=== PATIENT | female | born 1940 | race Caucasian/White ===

== ENCOUNTER → 2017-08-28 14:55 | Outpatient (CLI) | payer MEDICARE, OTHER, SELFPAY ==
--- NOTE | 2017-08-28 | BRBX_PTH ---
PATIENT: VERENICE GREENFIELD LOC: [facility] U#:[id number] AGE/SX: 85/F ROOM: RE08/28/[address]: Dr. Edwin Wolf MD : 1940 BED: DIS: SPEC #: [id number] RECD: 08/28/17 15:07 STATUS: ROCKY LUKAS #: [id number] ZARA: 08/28/17 00:[address]: Edwin Wolf DEPT: SURGICAL PATHOLOGY RECD BY: Benito Urbina ENTERED: 08/28/17 15:08 SP TYPE: BREAST BX OTHR DR: Dr. Javier Ocasio MD Tissues: Right breast, NOS Procedures: Surgery Specimen Level IV HEADER OPERATION: Right breast biopsy PRE-OP DIAGNOSIS: Right breast mass TISSUE SUBMITTED: Right breast tissue ISCHEMIC TIME: 1 second FIXATION TIME: 6.5 hours MICROSCOPIC DIAGNOSIS Right breast mass, core biopsy: Invasive ductal carcinoma: Maximal length ? 15 mm Nuclear grade ? 3/3 AM:rg 5/23/18 COMMENT ER/CO/Ewe5tdk studies are being performed on sections of tumor and the results from this study will be reported separately ([id number]). MICROSCOPIC DESCRIPTION Slides are reviewed. GROSS DESCRIPTION Received in fixative is one container labeled with the patient's name and designated right breast. The specimen consists of multiple elongated fragments of france-yellow fibroadipose tissue that in aggregate measure 2.5 x 0.5 x 0.1 cm. The entire specimen is submitted in one cassette. / SJ:barbara 08/28/17 TC:0 CPT: 77577 ADDENDUM ADDENDUM ADDENDUM ADDENDUM ADDENDUM ADDENDUM ADDENDUM ADDENDUM ADDENDUM ADDENDUM 10/24/2017 14:20 ADDENDUM 10/24/2017 14:20 ADDENDUM 10/24/2017 14:20 ADDENDUM 10/24/2017 14:20 ADDENDUM 10/24/2017 14:20 This addendum is added to incorporate an outside pathology consultation report. The case was examined at [facility] (#[id number]) and the following diagnosis was rendered. Breast, right, core biopsy: Invasive ductal carcinoma, poorly differentiated. Please see complete above mentioned consultation report in EMR
--- NOTE | 2017-08-28 | IMM_PTH ---
PATIENT: VERENICE GREENFIELD LOC: [facility] U#:[id number] AGE/SX: 85/F ROOM: RE08/28/[address]: Dr. Edwin Wolf MD : 1940 BED: DIS: SPEC #: [id number] RECD: 08/29/17 13:25 STATUS: ROCKY REQ #: [id number] ZARA: 08/28/17 00:[address]: Edwin Wolf DEPT: IMMUNOHISTOCHEMISTRY RECD BY: Sheila Leblanc ENTERED: 08/29/17 13:30 SP TYPE: IMMUNO OTHR DR: Dr. Javier Ocasio MD Tissues: Right breast, NOS Procedures: CALPONIN-1 (add) CK5-6 (add) CK8 (add) E-CAD (add) HER2 JOVITA (add) KI-67 (add) P53 (add) NE (add) P40 (add) ER (initial) PHYSICIAN & INSTITUTION [place] [id number] SPECIMEN INFORMATION: Tissue Source: Right breast tissue Clinical Info: Right breast mass Specimen Number: [id number] CPT code: 73309, 27579 x6, 37719 x3 METHODOLOGY: Deparaffinized sections of prefer/formalin-fixed tissue or PAP/DQ stained slides are incubated with monoclonal/polyclonal antibodies/oligonucleotide probes. Localization is made via biotin free immunoperoxidase method. Appropriate controls are performed and reacted as expected. Results on target cell population are indicated in the following table: RESULTS: ANTIBODY / CLONE RESULT P53 (DO-7) positive, >95% Ki-67 (30-9) positive, moderate CK8 (37xiveQ12) positive CK5-6 (D5 & 1684) negative Calponin-1 (XT865P) negative P40 (BC28) negative E-Cad (ECH-6) positive MORPHOMETRIC ANALYSIS ER (clone 6F11) >95%, strong NE (clone 16/1E2) <1%, weak Her-2Neu (clone CB11) 3+ The prognostic test for HER2 is performed on formalin-fixed paraffin embedded tissue. A 3+ (positive) staining pattern is defined as intense, homogeneous, complete, circumferential membranous staining in >10% of contiguous tumor cells. A similar weak (2+) staining pattern is interpreted as equivocal. DREW follow-up testing is recommended for all equivocal cases. Positivity/negativity for ER/NE is reported if > or < 1% of the tumor cells are immuno- reactive, respectively. The ASCO/CAP criteria is used for scoring. Reference: Journal of Clinical Oncology, 2013; 31:8047-6247 & 2010; 16:7836-6356. Duration of fixation: 6.5 Hrs; Sample Adequate: Yes. These assays have not been validated on decalcified tissues. Results should be interpreted with caution given the likelihood of false negativity on decalcified specimens. These tests were developed and their performance characteristics determined by [facility]. They may not have been cleared or approved by the U.S. Food and Drug Administration. The FDA has determined that such clearance or approval is not necessary. INTERPRETATION: Right breast, core biopsy: Invasive ductal carcinoma. Positive for estrogen receptors (favorable prognostic indicator). Positive for progesterone receptors (favorable prognostic indicator). Positive for overexpression of BSD6jxg. AM:barbara 08/31/17 ADDENDUM ADDENDUM ADDENDUM ADDENDUM ADDENDUM ADDENDUM ADDENDUM ADDENDUM 10/04/2017 10:33 ADDENDUM 10/04/2017 10:33 ADDENDUM 10/04/2017 10:33 ADDENDUM 10/04/2017 10:33 ADDENDUM 10/04/2017 10:33 Repeat HER2 (ERBB2) Immunohistochemistry assay performed at [facility] and reported on 10/03/17: Interpretation: Positive for HER2 (ERBB2) Expression Score: (3+) Percentage of cells with uniform intense complete membrane statin% Complete report is viewable in EMR
== END ==
PROVIDERS: Family Provider Family Medicine Geriatric Medicine; PCP Family Medicine Geriatric Medicine; Visit Provider Surgery
DX: N63.10 Unspecified lump in the right breast, unspecified quadrant (principal)
CPT/HCPCS: 88305; 88341; 88342

== ENCOUNTER → 2018-09-19 10:27 | Outpatient (CLI) | payer MEDICARE, OTHER, SELFPAY ==
[2018-09-16 15:03] VITALS: BMI 33.6
== END ==
PROVIDERS: Family Provider Nurse Practitioner Primary Care; PCP Nurse Practitioner Primary Care; Referring Provider Internal Medicine Cardiovascular Disease; Visit Provider Internal Medicine Cardiovascular Disease
DX: I49.3 Ventricular premature depolarization (principal); I10 Essential (primary) hypertension; I27.20 Pulmonary hypertension, unspecified; I34.0 Nonrheumatic mitral (valve) insufficiency; I36.1 Nonrheumatic tricuspid (valve) insufficiency
CPT/HCPCS: 93225; 93226

== ENCOUNTER → 2018-10-02 06:03 | Outpatient (CLI) | payer MEDICARE, OTHER, SELFPAY ==
[2018-09-16 15:03] VITALS: BMI 33.6
--- NOTE | 2018-10-02 09:46 | STRESSREP ---
Stress Test Report Date: 10-02-18 Procedure: Pharmacologic stress nuclear imaging study Indications: PVCs Consent: Per the patient Procedure: The patient underwent pharmacologic (Regadenoson) evaluation with a peak heart rate of 97 beats per minute (69 %predicted maximal heart rate) and a peak blood pressure of 152/88 mmHg. The baseline ECG demonstrated normal sinus rhythm; nonspecific T wave abnormality; poor R wave progression. The peak pharmacologic ECG demonstrated no obvious ECG changes. There were occasional PVCs pretest and during recovery in patterns compatible with ventricular bigeminy and ventricular trigeminy. There was no complaint of chest discomfort during pharmacologic infusion or recovery. The examination was discontinued secondary to completion of protocol. Impression: 1. Pharmacologic (Regadenoson) evaluation 2. Peak pharmacologic ECG with continued nonspecific T wave abnormality with no obvious ECG changes. 3. There were occasional PVCs pretest and during recovery and patterns compatible with ventricular bigeminy and ventricular trigeminy. 4. Nuclear images pending Myocardial perfusion imaging study: Technique: The patient was injected with 11.4 millicuries of technetium 99m Cardiolite and subsequently rest SPECT Cardiolite nuclear imaging was obtained in the horizontal long, vertical long, and short axis views. The patient underwent pharmacologic (Regadenoson) evaluation with a peak heart rate of 97 beats per minute (69 % percent predicted maximal heart rate) and a peak blood pressure of 152/88 mmHg. The patient was injected with 33.5 millicuries of technetium 99m Cardiolite and subsequently stress SPECT Cardiolite nuclear imaging was obtained in the horizontal long, vertical long, and short axis views. A gated Cardiolite study at peak stress was obtained. Interpretation: Rest and stress SPECT Cardiolite nuclear imaging status post realignment, normalization, and attenuation correction demonstrate areas of subtle diminished myocardial perfusion/tracer uptake in portions of the mid to distal anterior/anteroseptal segments which appear to be somewhat more prominent following stress as opposed to rest. There is end systolic thickening and brightening. The gated Cardiolite study demonstrates myocardial thickening and inward wall motion. The reported LVEF is 43 %. Impression: 1. Rest and stress SPECT cardio light nuclear imaging demonstrate myocardial perfusion changes potentially compatible with the effects of shifting soft tissue attenuation/artifact although an area of myocardial ischemia involving portions of the mid to distal anterior/anteroseptal segments cannot necessarily be excluded. 2. The gated Cardiolite study reports an LVEF of 43 %. This note was generated with NexPlanaration software. It may contain incorrect words, spelling, and punctuation that were not noted in checking the note before signing.
== END ==
PROVIDERS: Family Provider Nurse Practitioner Primary Care; PCP Nurse Practitioner Primary Care; Referring Provider Internal Medicine Cardiovascular Disease; Visit Provider Internal Medicine Cardiovascular Disease
DX: I25.10 Atherosclerotic heart disease of native coronary artery without angina pectoris (principal); I49.3 Ventricular premature depolarization; I10 Essential (primary) hypertension; I27.20 Pulmonary hypertension, unspecified; I34.0 Nonrheumatic mitral (valve) insufficiency; I36.1 Nonrheumatic tricuspid (valve) insufficiency
CPT/HCPCS: 78452; 93017; A9500; A4216; J2785

== ENCOUNTER 2018-10-15 06:58 | Day surgery (SDC) | payer MEDICARE, OTHER, SELFPAY ==
[2018-09-16 15:03] VITALS: BMI 33.6
[2018-10-08 09:12] VITALS: BMI 33.6
--- NOTE | 2018-10-08 09:15 | RAD_ITS ---
STUDY: X-RAY CHEST REASON FOR EXAM: Female, 78 years old. Shortness of breath. Abnormal stress test. Preop heart catheterization. TECHNIQUE: PA and lateral views of the chest. COMPARISON: None. FINDINGS: There is a right-sided PICC line with its tip in the midsuperior vena cava. The lungs are clear and expanded. There is no demonstrated pleural abnormality. The heart is mildly enlarged. Normal mediastinum and allison. Normal visualized pulmonary arteries. Normal visualized aortic arch and descending thoracic aorta. There are diffuse degenerative changes of the visualized thoracic spine. There is mild anterior wedging of what is thought to be T8. There is degenerative osteoarthritis of the bilateral shoulders. There is no demonstrated abnormality of the visualized soft tissue structures of the upper abdomen. RAD/Chest PA and Lateral IMPRESSION: Cardiomegaly without acute pulmonary disease. Electronically Signed: Omega Orourke DO at 16:56 EDT Tel [phone], Service support ,
[2018-10-08 10:32] LABS: Hemoglobin 12.4 g/dl (12.0-15.0); Mean Corp Hgb Conc 31.8 g/gl (32-36); Mean Corpuscular Hgb 28.4 pg (27.0-32.0); Mean Corpuscular Volume 89.2 fL (81-99); Mean Platelet Vol. 10.8 fl (6.2-12.0); Platelet Count 207 K/mm3 (150-450); RBC Distribution Width CV 15.9 % (11.6-14.6); RBC Distribution Width SD 51.9 fl (35.1-43.9); Red Blood Count 4.37 M/mm3 (4.2-5.4); White Blood Count 5.8 K/mm3 (4.4-11.0)
[2018-10-08 10:34] LABS: International Normalized Ratio 1.1; Prothrombin Time (Protime)PT. 14.4 SECONDS (11.7-14.9)
[2018-10-08 10:35] LABS: Scan Indicated on CBC? Y/N NO
[2018-10-08 10:36] LABS: Partial Thromboplast Time 34.9 Seconds (24.1-36.2)
[2018-10-08 10:49] LABS: Anion Gap 10 (5-15); BUN 15 mg/dL (7-18); BUN/Creat Ratio 17.5 RATIO (10-20); Calcium,Total 8.6 mg/dL (8.5-10.1); Chloride 111 mmol/L (98-107); Creatinine, Serum 0.86 mg/dL (0.55-1.02); EST Glomerular Filtration Rate 68 mL/min (>60); Est Glom Filt Rate - Afr Amer 82 mL/min (>60); Glucose 104 mg/dL (74-106); Potassium 3.8 mmol/L (3.5-5.1); Sodium Level 145 mmol/L (136-145)
[2018-10-14 08:45] VITALS: BMI 33.6
[2018-10-15] VITALS (35 sets, daily range): BP systolic 102–197; BP diastolic 37–110; PULSE 55–90; RESP 14–21; TEMP 35.7–35.8; O2SAT 92–99; BMI 35.4
--- NOTE | 2018-10-15 08:26 | PCM.HP.BLA ---
Problem List (1) Abnormal stress test Status: Acute (2) Premature ventricular contraction Status: Chronic (3) Non-rheumatic mitral regurgitation Status: Chronic (4) Nonrheumatic tricuspid valve regurgitation Status: Chronic (5) Essential hypertension Status: Chronic (6) Pulmonary hypertension Status: Chronic (7) Cancer of right female breast Status: Chronic History and Physical Date of Admission: 10/15/18 HPI History of Present Illness Details: This is an 78-year-old white female who presents today for outpatient cardiovascular consultation regarding concerns of underlying PVCs. She states she has no cardiovascular history that she is aware of. She has been undergoing evaluation and care through the [facility] system for concerns of breast carcinoma. She stated she was treated with chemotherapy, did not require radiation therapy, and has not had surgery. To the best of her knowledge she is currently in remission. She states she is due to have a follow-up mammogram in the near future. During her evaluation and care she has been found to have PVCs. According to her PCP notes she was now referred for evaluation of such. She denies any obvious palpitations or rapid rate sensations. There has been no episodes of near syncope or syncope. She also denies any resting or exertional chest discomfort suspicious for angina pectoris. There is been no episodes of CHF or pulmonary edema. She states she has been on medical management for her hypertension. She notes that since being on amlodipine therapy, especially her dose being increased, that she has an element of edema around her ankles. Based on her evaluation it appears to be trace at this time. She did have an ECG in the office today. She was noted to have sinus rhythm with PVCs in the form of ventricular bigeminy with a leftward axis, poor R wave progression, and a nonspecific T wave abnormality. She also had a transthoracic echocardiogram performed through the [facility] system on 07-24-18. According to the report the left ventricle was noted to have mildly diminished LV systolic function/LVEF of 50%, left atrium was severely enlarged, the right atrium was dilated, there was moderate MR and moderate TR, the estimated RV systolic pressure was 60 mmHg compatible pulmonary hypertension. To the best of her knowledge she has never had any type ambulatory heart rhythm monitoring nor she had any form of stress testing. She has never undergone diagnostic cardiac catheterization. Intake Vital Signs 09/16/18 Height 5 ft 2 in 09/16/18 Weight: 184 lb 09/16/18 Body Mass Index (BMI) 33.6 09/16/18 Blood Pressure 120/68 09/16/18 Blood Pressure Location Rt brachial 09/16/18 Blood Pressure Position Sitting 09/16/18 Respiratory Rate 16 09/16/18 Pulse Rate 72 09/16/18 Pulse Source Auscultation Intake Visit Reasons: Hypertension/Ref. Esperanza Topete Sequins Slinger Required: No Accompanied by: Allergies No Known Allergies Allergy (Verified 09/16/18 15:03) Medications Aspirin [Low Dose Aspirin EC] 81 mg PO DAILY 09/17/17 [History Confirmed 09/16/18] amlodipine 5 mg tablet 5 mg PO DAILY 09/16/18 [History Confirmed 09/16/18] anastrozole 1 mg tablet 1 mg PO DAILY 09/16/18 [History Confirmed 09/16/18] calcium carbonate-vitamin D3 600 mg calcium-200 unit capsule 1 cap PO DAILY cap 09/16/18 [History Confirmed 09/16/18] quinapril 40 mg tablet 40 mg PO DAILY 09/16/18 [History Confirmed 09/16/18] [facility] Medical History Pulmonary hypertension (Acute) Nonrheumatic tricuspid valve regurgitation (Acute) Non-rheumatic mitral regurgitation (Acute) Premature ventricular contraction (Acute) Essential hypertension (Chronic) Anxiety (Acute) Mass of right breast on mammogram (Acute) Breast cancer (Resolved) H/O: hysterectomy (Resolved) HTN (hypertension) (Inactive) Surgical History History of cholecystectomy (Resolved) H/O bladder repair surgery (Resolved) Family History Sister Breast cancer Sister Cancer Brain Other late entry reviwed 09-14-17 Social History Smoking Status: Never smoker alcohol intake: never substance use type: does not use caffeine: Yes Type: coffee ROS Const Const: Negative for fatigue, weakness, frequent falls, excessive sweating, weight gain or weight loss Eyes Eyes: Negative for transient loss of vision, blurry vision or change in vision ENT ENT: Negative for dizziness or balance problems Cardio Chest Pain: No Palpitations: No Edema: Bilateral (slight bilat LE) Muscle aches with walking: None Resp Respiratory: Negative for SOB with activity or SOB at rest GI GI: Negative vomiting or vomiting blood/hematemesis : Negative for hematuria Musc Musc: Negative for muscle aches/ myalgia, muscle weakness, joint pain or balance problems Skin Skin: Negative non-healing lesions or rash Neuro Neuro: Negative for dizziness, lightheadedness, orthostatic symptoms, frequent falls, weakness or blurry vision Oskar Hematologic/Lymphatic: Negative for easy bleeding Endo Endo: Negative for fatigue or excessive sweating Psych Psych: Negative for anxiety or depression Allergy Allergy/Immunology: Negative for hives, Negative for rash Cardiology Exam Const Appearance: cooperative, healthy appearing, comfortable, no acute distress, well developed and well groomed Nutritional Appearance: obese Orientation: alert, awake and oriented x3 Head Head: normal to inspection, normocephalic and atraumatic Ears: hearing grossly normal bilaterally Nose: external nose normal Face and Sinus: face symmetric Mouth: oral mucosae normal Eyes Eyelids: eyelids normal Conjunctivae: conjunctivae normal Pupils: PERRL EOM: EOM intact bilaterally Neck Neck: normal visual inspection and full ROM Carotids: normal carotid upstroke Chest Chest inspection: normal inspection of the chest, symmetric chest movement and normal respiratory effort Auscultation: Bilateral: Clear to Auscultation Cardio Palpation: normal PMI Rate: regular rate Rhythm: regular rhythm and ectopic beats Heart sounds: S1 normal and S2 normal Murmur: Grade 2/6, soft, mid systolic and LLSB GI GI: normal to inspection, soft, bowel sounds present and obese Neuro General: alert, awake, oriented x3 and moves all extremities Skin Skin: no rashes or lesions noted Extremities Pulses: Normal: Right Radial Pulse, Left Radial Pulse Lower Extremity Edema: None: Bilateral Psych Psychological: normal affect Assessment & Plan 1. Premature ventricular beat I49.3 Plan At the present time she does have PVCs. They appear to be asymptomatic. She will be further evaluated with a 24-hour Holter monitor. This will be to evaluate her average rate and rhythm as well as attempt to evaluate the complexity of her ventricular ectopy and quantify her ventricular ectopy. Depending upon the findings she may or may not need medical management for her ventricular ectopy. Orders Orders: 12 Lead [place] [facility] [place] Cardiac Holter Monitor, Set-Up Today Nuclear Stress Test - Chemical Today 2. Non-rheumatic mitral regurgitation I34.0 Plan She does have both MR and TR per her report. At the moment she appears without any obvious acute symptoms. She will continue to be followed by history and exam and echocardiogram as deemed appropriate. Orders Orders: Cardiac Holter Monitor, Set-Up Today Nuclear Stress Test - Chemical Today 3. Nonrheumatic tricuspid valve regurgitation I36.1 Plan She will continue evaluation care as noted above. Orders Orders: Cardiac Holter Monitor, Set-Up Today Nuclear Stress Test - Chemical Today 4. Pulmonary HTN I27.20 Plan She does have, per her echocardiogram report, elevation of her right sided pressures. She appears to be without any acute symptoms at this time. She will undergo further evaluation as noted above. She will also continue her calcium channel antagonist therapy. She has not required ongoing diuretic therapy at this time or additional pulmonary support. Orders Orders: Cardiac Holter Monitor, Set-Up Today Nuclear Stress Test - Chemical Today 5. Essential hypertension I10 Plan Her blood pressure appears to be reasonably well controlled at the moment. She will continue her current medical therapy. Orders Orders: 12 Lead EKG [place] [facility] [place] Cardiac Holter Monitor, Set-Up Today Nuclear Stress Test - Chemical Today Plan Detail Additional Comments She will also be asked to have a pharmacologic stress nuclear imaging study. This will be to further assess her cardiovascular status for any obvious evidence of ongoing coronary artery ischemia that would contribute to her findings and warrant further evaluation and care. The above was discussed with the patient and her . They are agreeable to this approach. Thank you for allowing me to participate in the care of your patient. Please don't hesitate to call if any issues arise. This note was generated using a voice recognition system and there may be incorrect words, spelling or punctuation that were not noted when reviewing the office note prior to saving. Follow Up 3 Months (PFM) Coding Level of Care Code Off vis,new,level 4 Diagnoses Premature ventricular beat I49.3 Non-rheumatic mitral regurgitation I34.0 Nonrheumatic tricuspid valve regurgitation I36.1 Pulmonary HTN I27.20 Essential hypertension I10 Coding Level of Care Code Off vis,new,level 4 Diagnoses Premature ventricular beat I49.3 Non-rheumatic mitral regurgitation I34.0 Nonrheumatic tricuspid valve regurgitation I36.1 Pulmonary HTN I27.20 Essential hypertension I10 Supplemental Info Supplemental Information Labs LDL Cholesterol 84 mg/dL (0-130) 06/02/15 HDL Cholesterol 61 mg/dL (40-) 06/02/15 Triglycerides 67 mg/dL (-199) 06/02/15 VLDL Cholesterol 13 mg/dL (5-40) 06/02/15 Diagnostics Electrocardiogram 09/16/18 09/16/18 [id number] <Electronically signed by Jose Alfredo Felton MD> Date Jose Alfredo Felton MD I have examined the patient the following changes are noted: Her graph the patient underwent pharmacologic stress nuclear imaging study on 10-02-18. The impression consisted of myocardial perfusion changes potentially compatible with the effects of shifting soft tissue attenuation/artifact although an area of myocardial ischemia involving portions of the mid to distal anterior and anteroseptal segments could not necessarily be excluded. The gated LVEF was reported at 43%. Based upon the above the patient was recommended for further evaluation with diagnostic cardiac catheterization. The procedure and risks were discussed with the patient. She was agreeable to this approach. This is scheduled for 10-15-18 at [facility]. This note was generated using a voice recognition system and there may be incorrect words, spelling or punctuation that were not noted when reviewing the office note prior to saving.
--- NOTE | 2018-10-15 10:35 | CL.I_ITS ---
Patient Name: VERENICE GREENFIELD Study Date: 10/15/2018 Performing: Gelacio Biggs MD Ht: 61.81 inches 157 cm : 1940 Wt: 182.98 lbs 83 kg Age: 78 Gender: female BSA: 1.84 PROCEDURE(S) PERFORMED [id number] W OR WO PTCA, SINGLE CORONARY ARTERY CLINICAL PROFILE AND CO-MORBIDITIES Indications: Suspected CAD, Cardiomyopathy, Cardiac Arrythmia Heart Failure: None Stress/Imaging Date: 10/02/2018 Stress Test with SPECT MPI: Positive Angina Classification Anginal Classification w/in 2 Weeks: No symptoms CAD Presentations: Other: Ventricular Ectopy CONCLUSIONS Successful PCI with Drug eluting stent and PTCA to the pLAD RECOMMENDATIONS Follow up with Dr. Jose Francisco FARFAN Indefinitley Plavix for at least 12 months Routine post interventional care DESCRIPTION OF PROCEDURE The patient arrived to the procedure lab. The risks and benefits of the procedure as well as a full d escription of our services here and current unavailability of surgical backup were fully explained to the patient and/or their significant other prior to the catheterization. The Timeout was completed, verifying the correct patient and procedure. The patient's procedural site was prepped and draped in the usual fashion. Local anesthetic was given subcutaneously to right radial region with Lidocaine 2% . Local anesthetic was given subcutaneously to right groin region with Lidocaine 2% Using a modified Seldinger technique,arterial access was obtained via the right radial artery, a 6Fr sheath was insert ed., arterial access was obtained via the right femoral artery, a 4Fr sheath was inserted Left [place] ry Artery selective angiography was performed in multiple views using a 4 Fr. JL5 catheter. Right Cor onary Artery selective angiography was then performed in multiple views using a 4 Fr. JR4 catheter. Left Ventriculography was performed in BARBOSA projection using a 4 Fr. Pigtail catheter. LV to AO pullback pressures were then recorded.The images were reviewed and options discussed. A decision was then made to proceed with an Intervention, IVUS or other adjunct procedure. Arterial sheath was exchanged for a 6 Fr Sheath. xb 3 cordis Guide catheter was inserted and enga ged into the LCA. bmw Guide wire was advanced to the LAD. emerge 2.00 x 12 Balloon catheter was advan yvonne across lesion in the LAD, proximal. PTCA balloon inflated at 6 atms for 9 secs. PTCA balloon infl ated at 6 atms for 8 secs. resolute integrity 2.25 x 12 Drug Eluting stent was advanced across the le amos in the LAD, proximal. Angiogram performed post stent deployment. The radial arterial sheath wa s pulled and a TR Band was applied for hemostasis. The arterial sheath was sutured in place and cappe d INTERVENTION INFORMATION LESION SITE: LAD (Proximal) Lesion Complexity: High/C, chronic total occlusion: No, lesion at bifurcation: No, thrombus present: No, lesion length: 10 mm, culprit lesion: Yes, Previously treated lesion: No Pre Stenosis: 80 % Pre intervention URSULA flow: 3 PROCEDURE: Drug Eluting Stent with pre dilatation. Post Stenosis: 0 % Post intervention URSULA flow: 3 Lesion Devices: Cordis 6 Fr XB3.0 100cm Guide Catheter Powell .014 [employer] [place] Straight 190cm Powell .014 [employer] [place] Straight 190cm Rey Sci EMERGE MR 2.00x12 BALLOON Medtronic Resolute RX SHALOM 2.25x12 COMPLICATIONS No Complications PROCEDURE MEDICATIONS Versed 1 mg IV Fentanyl 50 mcg IV Versed 1 mg IV Oxygen: 2 L/min via nasal cannula Heparin given IA 10/15/2018 08:36:54 Heparin given IA 10/15/2018 08:36:54 Heparin 6000 unit(s) IV 10/15/2018 09:57:05 Verapamil 2.5mg, Ntg 100mcgs, 2000 units of Heparin given IA 10/15/2018 08:36:54 Verapamil 2.5mg, Ntg 100mcgs, 2000 units of Heparin given IA 10/15/2018 08:36:54 Zofran 4 mg IV 10/15/2018 10:00:55 SUMMARY OF HEMODYNAMIC DATA Time AIR REST ECG 07:18:30 AO 156/69 (100) SA 09:29:44 LV 162/11, 25 09:39:17 LV 152/0, 17 09:40:33 LV 165/2, 16 09:40:57 LVp 165/0, 20 09:41:04 AOp 158/72 (104) 09:41:09 Signed By Gelacio Biggs MD On 10/15/2018 10:34:29 Gelacio Biggs MD
--- NOTE | 2018-10-15 10:45 | EKG12_ITS ---
Test Reason : POST PCI Blood Pressure : / mmHG Vent. Rate : 055 BPM Atrial Rate : 055 BPM P-R Int : 248 ms QRS Dur : 090 ms QT Int : 474 ms P-R-T Axes : 023 -27 -32 degrees QTc Int : 453 ms Sinus bradycardia with 1st degree A-V block Nonspecific ST and T wave abnormality Abnormal ECG Confirmed by YENNY BROTHERS ([id number]), purchase request editor SILVER BURROWS ([id number]) on 10/17/2018 1:54:30 PM Referred By: Jose Alfredo Felton Confirmed By:YENNY BROTHERS
[2018-10-15] MEDS: 0.9% Normal Saline 1,000 ML 100 ML IV (11:05)
--- NOTE | 2018-10-15 11:40 | CL.D_ITS ---
Patient Name: VERENICE GREENFIELD Study Date: 10/15/2018 Performing: Jose Alfredo Felton MD Ht: 62 inches 157 cm : 1940 Wt: 183.2 lbs 83 kg Age: 78 Gender: female BSA: 1.84 PROCEDURE(S) PERFORMED [id number] W OR WO PTCA, SINGLE CORONARY ARTERY CLINICAL PROFILE AND INDICATIONS Indications: Suspected CAD, Cardiomyopathy, Cardiac Arrythmia Heart Failure: None Stress/Imaging Date: 10/02/2018Stress Test with SPECT MPI: Positive Angina Classification Anginal Classification w/in 2 Weeks: No symptoms CAD Presentations: Other: Ventricular Ectopy CONCLUSIONS Elevated Left Ventricular End Diastolic Pressure Global LV systolic dysfunction- Mild LVEF: by LV gram 45 % [place] Multivessel CAD RECOMMENDATIONS Risk factor modification Medical therapy Referred for immediate PCI DESCRIPTION OF PROCEDURE The patient arrived to the procedure lab. The risks and benefits of the procedure as well as a full d escription of our services here and current unavailability of surgical backup were fully explained to the patient and/or their significant other prior to the catheterization. The Timeout was completed, verifying the correct patient and procedure. The patient's procedural site was prepped and draped in the usual fashion. Local anesthetic was given subcutaneously to right radial region with Lidocaine 2% . Local anesthetic was given subcutaneously to right groin region with Lidocaine 2%. Using a modified Seldinger technique, arterial access was obtained via the right radial artery, a 6Fr sheath was inse rted., arterial access was obtained via the right femoral artery, a 4Fr sheath was inserted Left Cor onary Artery selective angiography was performed in multiple views using a 4 Fr. JL5 catheter. Right Coronary Artery selective angiography was then performed in multiple views using a 4 Fr. JR4 catheter. Left Ventriculography was performed in BARBOSA projection using a 4 Fr. Pigtail catheter. L V to AO pullback pressures were then recorded.The radial arterial sheath was pulled and a TR Band was applied for hemostasis. The arterial sheath was sutured in place and capped CORONARY ANGIOGRAPHY DOMINANCE: Right Dominant LEFT HEART ASSESSMENT Left Ventricular Ejection Fraction: by LV Gram 45 % Global Hypokinesis Elevated Left Ventricular End Diastolic Pressure LEFT MAIN: Angiographically normal LEFT ANTERIOR DESCENDING ARTERY: PROX LAD: Mild calcification MID LAD: S/P DX: Eccentric: Hazy: 75 % Stenosis, Mild luminal irregularities DIAGONAL 1: Proximal - Mild luminal irregularities CIRCUMFLEX ARTERY: OM 1: Proximal - Mild luminal irregularities RIGHT CORONARY ARTERY: PROX RCA: Eccentric: 10 -25 % Stenosis MID RCA: Mild luminal irregularities DISTAL RCA: Mild luminal irregularities VALVE FINDINGS: Normal Aortic Valve function Mitral Valve Insufficiency - Grade 2 AORTIC ROOT: Angiographically normal COMPLICATIONS No Complications PROCEDURE MEDICATIONS Versed 1 mg IV Fentanyl 50 mcg IV Versed 1 mg IV Oxygen: 2 L/min via nasal cannula Heparin given IA 10/15/2018 08:36:54 Heparin given IA 10/15/2018 08:36:54 Heparin 6000 unit(s) IV 10/15/2018 09:57:05 Verapamil 2.5mg, Ntg 100mcgs, 2000 units of Heparin given IA 10/15/2018 08:36:54 Verapamil 2.5mg, Ntg 100mcgs, 2000 units of Heparin given IA 10/15/2018 08:36:54 Zofran 4 mg IV 10/15/2018 10:00:55 SUMMARY OF HEMODYNAMIC DATA Time AIR REST ECG 07:18:30 AO 156/69 (100) SA 09:29:44 LV 162/11, 25 09:39:17 LV 152/0, 17 09:40:33 LV 165/2, 16 09:40:57 LVp 165/0, 20 09:41:04 AOp 158/72 (104) 09:41:09 Signed By Jose Alfredo Felton MD On 10/15/2018 11:39:18 Jose Alfredo Felton MD
--- NOTE | 2018-10-15 12:35 | CHAPLAIN ---
Type of Pastoral Visit _x__ Initial Visit ___ Follow-up Visit ___ On-call Visit ___ General Patient Visit ___ Spiritual Assessment ___ Family Conference ___ Bereavement ___ Rapid Response ___ Code Blue ___ Other (describe below) Pastoral Care Referral From _x__ Patient ___ Family ___ Nurse ___ Physician ___ Bar Captain ___ Rack Cleaner ___ Other (describe below) Sacrament/Intervention _x__ Active listening ___ Anointing ___ Episcopal ___ Bereavement ___ Communion ___ Kiley exploration ___ ___ Life review _x__ Prayer ___ Reconciliation ___ Sacrament of Sick _x__ Supportive presence ___ Wedding ___ Other (describe below) Pastoral Comments
[2018-10-15] MEDS: hydrALAZINE 20 MG/ML Vial 10 MG IV ×2 (12:37→15:26)
[2018-10-15 13:05] LABS: ACT Activated Clotting Time 191 sec (74-137)
[2018-10-15 14:15] LABS: ACT Activated Clotting Time 175 sec (74-137)
[2018-10-15 15:15] LABS: ACT Activated Clotting Time 164 sec (74-137)
[2018-10-15] MEDS: amLODIPine 5 MG Tablet PO (20:10)
[2018-10-15] MEDS: Metoprolol Tartrate 25 MG Tablet PO (22:56)
[2018-10-16] VITALS (14 sets, daily range): BP systolic 115–170; BP diastolic 27–72; PULSE 55–71; RESP 14–19; TEMP 36.2–36.6; O2SAT 92–98
[2018-10-16] MEDS: 0.9% NaCl Peripheral Flush Adult/Peds IV (04:13)
[2018-10-16 04:23] LABS: Absolute Neutrophil Count 5.3 X10^3/uL (2.0-7.7); Basophil# 0.03 X10^3/uL; Basophil% 0.4 % (0-1); Eosinophil# 0.07 X10^3/uL; Eosinophils% 0.8 % (0-5); Hematocrit 39.4 % (37-47); Hemoglobin 12.7 g/dl (12.0-15.0); Lymphocyte % 25.8 % (19-41); Mean Corp Hgb Conc 32.2 g/gl (32-36); Mean Corpuscular Hgb 28.2 pg (27.0-32.0); Mean Corpuscular Volume 87.4 fL (81-99); Mean Platelet Vol. 10.6 fl (6.2-12.0); Monocyte# 0.88 X10^3/uL; Monocyte% 10.3 % (0-10); Neutrophil # 5.33 X10^3/uL (2.7-7.7); Neutrophil % 62.6 % (47-70); Platelet Count 221 K/mm3 (150-450); RBC Distribution Width CV 15.8 % (11.6-14.6); RBC Distribution Width SD 50.4 fl (35.1-43.9); Red Blood Count 4.51 M/mm3 (4.2-5.4); White Blood Count 8.5 K/mm3 (4.4-11.0)
[2018-10-16 04:24] LABS: POSITIVE COUNT NO; POSITIVE DIFFERENTIAL NO; POSITIVE MORPHOLOGY NO
[2018-10-16 04:41] LABS: ALB/GLOB Ratio 1.2 RATIO (0.9-2.4); AST(SGOT) 27 U/L (15-37); Alanine Aminotransfer ALT/SGPT 45 U/L (13-56); Albumin, Serum 3.6 g/dL (3.2-5.0); Alkaline Phosphatase 81 U/L (45-117); Anion Gap 9 (5-15); BUN 9 mg/dL (7-18); BUN/Creat Ratio 11.3 RATIO (10-20); Calcium,Total 8.7 mg/dL (8.5-10.1); Chloride 108 mmol/L (98-107); EST Glomerular Filtration Rate 73 mL/min (>60); Est Glom Filt Rate - Afr Amer 89 mL/min (>60); Estimated Creatinine Clearance 40.29 ml/min; Glucose 102 mg/dL (74-106); Potassium 3.9 mmol/L (3.5-5.1); Protein, Total 6.6 g/dL (6.4-8.2); Sodium Level 141 mmol/L (136-145)
--- NOTE | 2018-10-16 08:31 | CRPHASE1_ITS ---
Patient Communication Former Patient:: Phase I PHII Cardiac Rehab Discussed with Patient:: Yes Guide to Cardiac Rehab Given to Patient:: Yes Cardiac Rehab Facility Choice List Given to Patient:: Yes Choice Program [facility] PHII:: Communication Given to CR, Refer to [facility] Choice Program Other:: Communication Given to CR, With permission faxed order and referral information Email Campaign Specialist:: Nadya Biggs Refer Phase II Cardiac Rehab:: Yes Sessions:: 36 sessions - 3 days/wk, 12 weeks Risk Factors/Lifestyle Smoking Status: Never smoker Hx Hypertension: Yes Hx Diabetes Mellitus Type 1: No Hx Diabetes Mellitus Type 2: No Hx Metabolic Disorders: No Hx Dyslipidemia: No Hx Obesity: Yes - BMI 35.5 Height: 5 ft 8 in Post-Menopausal: Yes Stress: Home/Family Risk Factor for Sedentary Lifestyle: Moderate Risk Family History: Family History (Last Reviewed 09/16/18 @ 15:06 by Morelia Coto) Sister Breast cancer Sister Cancer Other late entry reviwed 09-14-17 Phase I Education Given On:: [place], Nutrition, Antiplatelet medication Issues Affecting Care:: None Knowledge of Condition:: Yes Learning Preferences: Verbal, Written Hospital Course Presenting Symptoms:: PVC'S AND T-WAVE ABNORMALITY Medical/Surgical History MA:: No Angina:: No CAD:: No Cardiomyopathy:: No Pulmonary:: Yes - PULM. HTN Diabetes:: No Hypertension:: Yes Dyslipidemia:: No Cancer:: Yes - HX BREAST CA Discharge/Home/Social Eval Discharge Disposition: Home Cardiac Rehabilitation Info Cardiac Rehabilitation Program Information: Cardiac Rehabilitation is important for patients like you who are recovering from a heart problem. Cardiac rehabilitation programs are recognized as integral to the con tinued care of the patient with coronary heart disease. The cardiac rehabilitation program is designed to optimize a patient's physical, psychological, and social functioning. Health laboratory animal care veterinarian work in cardiac rehabilitation programs and assist you with getting the treatments you need to get stronger and healthier - like exercise, healthy eating habits, and medications. Cardiac rehabilitation has been show to help people with heart problems live longer and have better life enjoyment than people who do not go to cardiac rehabilitation. Please contact the Cardiac Rehabilitation Program at [facility] at in two weeks if you have not heard from them.
--- NOTE | 2018-10-16 08:31 | DCINST_ITS ---
- Discharge Diagnoses Current Active Problems: Current Active and Chronic Problems (Last Updated 09/16/18 @ 15:08 by Morelia Coto) S/P coronary artery stent placement (Chronic ~10/15/18) PTCA/SHALOM to prox LAD 10/15/18 Atherosclerotic heart disease of [place] coronary artery without angina pectoris (Chronic) You will use the following diet at home:: Cardiac Your food should be the consistency of: Regular Discharge Activity: May Shower - Shower today, May Take a Tub Bath - May not take a tub bath for 7 days Weight Bearing Status: - - Avoid heavy exertional activity pending outpatient cardiovascular follow-up visit Call your doctor if your incision/area has: Continuous Slow Oozing, Sudden Increased Bleeding, Increased Pain/ Swelling, Increased Redness, Foul Smelling Discharge Call your doctor if you observe: Shortness of breath, Dizziness, Fainting spells, Chest pain, Increased palpitations (irregular heartbeat), Calf discomfort Remove Dressing in (days):: 1 Cleanse incision/area with: Soap & Water Additional Instructions: [facility] to arrange outpatient cardiology follow up. Allergies/Adverse Reactions: Allergies No Known Allergies Allergy (Verified 09/16/18 15:03) CHARTED 09-14-17 Medications to take at Discharge Aspirin [Low Dose Aspirin EC] 81 mg PO DAILY 09/17/17 anastrozole 1 mg tablet 1 mg PO DAILY 09/16/18 calcium carbonate-vitamin D3 600 mg calcium-200 unit capsule 1 cap PO DAILY cap 09/16/18 quinapril 40 mg tablet 40 mg PO DAILY 09/16/18 metoprolol tartrate 25 mg tablet 25 mg PO BID #60 tab 09/24/18 clopidogrel 75 mg tablet 75 mg PO DAILY #30 tab 10/08/18 Amlodipine Besylate 10 mg PO DAILY #30 10/16/18 Anastrozole [Arimidex] 1 mg PO DAILY tablet 10/16/18 Aspirin E.C. [Ecotrin] 81 mg PO DAILY@0800 tablet 10/16/18 Atorvastatin Calcium [Lipitor] 40 mg PO QHS #30 tab 10/16/18 Clopidogrel Bisulfate [Plavix] 75 mg PO DAILY tablet 10/16/18 Lisinopril [Zestril] 40 mg PO DAILY tablet 10/16/18 Metoprolol Tartrate [Lopressor (beta tony)] 25 mg PO BID tablet 10/16/18 The following prescriptions were given: Atorvastatin Calcium [Lipitor] 40 mg PO QHS #30 tab Transmission Status: Pending to [facility]/pharmacy #[id number] Orders to be completed after discharge: Phase II, Outpatient Cardiac Rehab Location: None Selected Primary Care Physician: Esperanza Topete NP-C [Primary Care Provider] - Test Results: Test results from this visit will be discussed in further detail at your follow- up appointment, if applicable. Please Follow Up With: Jose Alfredo Felton MD When: To be arranged by [facility] Proposed Discharge Date: 10/16/18
--- NOTE | 2018-10-16 08:35 | CRPH1.INSTRU ---
General Education CAD and cardiac anatomy and function:: Patient communicates acknowledgment Explanation of diagnoses and procedures:: Patient communicates acknowledgment Sign/Symptoms of RI:: Patient communicates acknowledgment Antiplatelet therapy: Patient communicates acknowledgment Proper use of NTG-SL: Not instructed Emergency procedures and activation of EMS: Patient communicates acknowledgment Compliance of all prescribed medications: Patient communicates acknowledgment Smoking Patient Nicotine/Smoking Risk Factors Are:: Never smoked Dyslipidemia Recommendations Include:: Lipid profile provided, Reviewed NCEP/ATP guidelines, Therapeutic Lifestyle Change dietary guidelines Dyslipidemia Response Code:: Patient communicates acknowledgment Overweight/Obesity Patient Overweight/Obesity Risk Factors Are:: Obesity - > or = 30 Recommendations Include:: Weight loss of 5-10%, Reduced calorie diet, Exercise 5-7 times/week Overweight/Obesity:: Patient communicates acknowledgment Hypertension Recommendations Include:: Maintain BP <130/85, DASH dietary guidelines, Decrease/maintain normal body weight, Moderation of ETOH Hypertension:: Patient communicates acknowledgment Heart Disease Heart Disease Response Code:: Patient communicates acknowledgment Diabetes Patient Diabetes Risk Factors Are:: No documented hx of diabetes Metabolic Syndrome Recommendations Include:: Does not meet criteria Sedentary Patient Sedentary Risk Factors Are:: Lack of regular exercise Recommendations Include:: Aerobic exercise 5-7 times/week for 20-30 minutes continuously, Benefits of regular exercise, Discussed home walking program, Monitored Outpatient Cardiac Rehab Sedentary Response Code:: Patient communicates acknowledgment Stress Recommendations Include:: Identification of stressors, and assessment of coping skills, Stress management techniques Stress Response Code:: Patient communicates acknowledgment
--- NOTE | 2018-10-16 08:39 | DS.PCM_ITS ---
Discharge Date and Diagnosis Date of Admission: 10/15/18 Date of Discharge: 10/16/18 - Primary Discharge Diagnosis Abnormal stress test: CAD status post LAD PCI - Secondary Discharge Diagnosis Chronic Problems (Last Updated 09/16/18 @ 15:08 by Morelia Coto) S/P coronary artery stent placement (Chronic ~10/15/18) PTCA/SHALOM to prox LAD 10/15/18 Atherosclerotic heart disease of [place] coronary artery without angina pectoris (Chronic) Pulmonary hypertension (Chronic) Nonrheumatic tricuspid valve regurgitation (Chronic) Non-rheumatic mitral regurgitation (Chronic) Premature ventricular contraction (Chronic) Essential hypertension (Chronic) Cancer of right female breast (Chronic) Hospital Course and Treatment Procedures: Cardiac catheterization, - - Cardiac intervention Summary of Care Provided: The patient is a 78 year old white female with a history of PVCs and subsequent abnormal stress test who was referred for evaluation with diagnostic cardiac catheterization. Diagnostic cardiac catheterization demonstrated angiographically significant appearing coronary artery disease in the LAD distribution. She subsequently underwent LAD PCI. She was monitored in the ICU overnight. She appeared to be symptomatically and hemodynamically stable. On 10-16-18 it was felt the patient could be released home for continued outpatient cardiovascular follow-up and outpatient cardiac rehabilitation. [] - Physical Exam General: Alert, Oriented x3, Cooperative, No apparent distress HEENT: Atraumatic, PERRLA, EOMI, Normocephalic Oral: Moist Mucosa Neck: Supple, No JVD Lungs: Clear to auscultation Cardiovascular: Regular rate, Regular Rhythm, Normal S1, Normal S2, - - 2/6 systolic murmur at the lower sternal border/LVOT/sternal notch Abdomen: Bowel Sounds Present, Soft, Non Tender Extremities: No clubbing, No cyanosis, No edema, - - Right radial artery and right femoral artery: Pulse 2+/4+ without obvious bruit or hematoma Neurological: Neuro grossly intact Psych/Mental Status: Normal Affect Vital Signs Temp Pulse Resp BP Pulse Ox 97.1 F L 67 17 163/57 H 96 10/16/18 00:00 10/16/18 07:45 10/16/18 07:42 10/16/18 07:42 10/16/18 07:42 Oxygen Delivery Method Room Air Weight: 169 lb 8.568 oz Body Mass Index (BMI) 35.4 Intake and Output for Last 24 Hours 07/11/2510/15/18 10/16/18 23:59 23:59 23:59 Intake Total 570 / 1058 708 / 708 Output Total 1000 / 2250 1750 / 1750 Balance -430 / -1192 -1042 / -1042 Laboratory Tests Past 24 Hrs 10/15/18 10/15/18 10/15/18 12:52 13:59 15:07 WBC RBC Hgb Hct MCV MCH MCHC RDW RDW Differential Plt Count MPV Immature Gran % (Auto) Neut % (Auto) Lymph % (Auto) [place] % (Auto) Eos % (Auto) Baso % (Auto) Absolute Neuts (auto) Absolute Lymphs (auto) Total Counted Activated Clotting Time 191 H 175 H 164 H Sodium Potassium Chloride Carbon Dioxide Anion Gap BUN Creatinine Estim Creat Clear Calc Est GFR (MDRD) Af Amer Est GFR (MDRD) Non-Af BUN/Creatinine Ratio Glucose Calcium Total Bilirubin AST ALT Alkaline Phosphatase Total Protein Albumin Globulin Albumin/Globulin Ratio 10/16/18 10/16/18 04:15 04:15 WBC 8.5 RBC 4.51 Hgb 12.7 Hct 39.4 MCV 87.4 MCH 28.2 MCHC 32.2 RDW 15.8 H RDW Differential 50.4 H Plt Count 221 MPV 10.6 Immature Gran % (Auto) 0.100 Neut % (Auto) 62.6 Lymph % (Auto) 25.8 [place] % (Auto) 10.3 H Eos % (Auto) 0.8 Baso % (Auto) 0.4 Absolute Neuts (auto) 5.3 Absolute Lymphs (auto) 2.20 Total Counted Not Reportable Activated Clotting Time Sodium 141 Potassium 3.9 Chloride 108 H Carbon Dioxide 24.0 Anion Gap 9 BUN 9 Creatinine 0.80 Estim Creat Clear Calc 40.29 Est GFR (MDRD) Af Amer 89 Est GFR (MDRD) Non-Af 73 BUN/Creatinine Ratio 11.3 Glucose 102 Calcium 8.7 Total Bilirubin 1.20 H AST 27 ALT 45 Alkaline Phosphatase 81 Total Protein 6.6 Albumin 3.6 Globulin 3.0 Albumin/Globulin Ratio 1.2 Discharge Activity: May Shower - Shower today, May Take a Tub Bath - May not take a tub bath for 7 days Weight Bearing Status: - - Avoid heavy exertional activity pending outpatient cardiovascular follow-up visit Call your doctor if your incision/area has: Continuous Slow Oozing, Sudden Increased Bleeding, Increased Pain/ Swelling, Increased Redness, Foul Smelling Discharge Call your doctor if you observe: Shortness of breath, Dizziness, Fainting spells, Chest pain, Increased palpitations (irregular heartbeat), Calf discomfort Remove Dressing in (days):: 1 Cleanse incision/area with: Soap & Water Home Medications: Medications to take at Discharge Aspirin [Low Dose Aspirin EC] 81 mg PO DAILY 09/17/17 anastrozole 1 mg tablet 1 mg PO DAILY 09/16/18 calcium carbonate-vitamin D3 600 mg calcium-200 unit capsule 1 cap PO DAILY cap 09/16/18 quinapril 40 mg tablet 40 mg PO DAILY 09/16/18 metoprolol tartrate 25 mg tablet 25 mg PO BID #60 tab 09/24/18 clopidogrel 75 mg tablet 75 mg PO DAILY #30 tab 10/08/18 Amlodipine Besylate 10 mg PO DAILY #30 10/16/18 Anastrozole [Arimidex] 1 mg PO DAILY tablet 10/16/18 Aspirin E.C. [Ecotrin] 81 mg PO DAILY@0800 tablet 10/16/18 Atorvastatin Calcium [Lipitor] 40 mg PO QHS #30 tab 10/16/18 Clopidogrel Bisulfate [Plavix] 75 mg PO DAILY tablet 10/16/18 Lisinopril [Zestril] 40 mg PO DAILY tablet 10/16/18 Metoprolol Tartrate [Lopressor (beta tony)] 25 mg PO BID tablet 10/16/18 Following Prescrptions Were Given to Patient: Atorvastatin Calcium [Lipitor] 40 mg PO QHS #30 tab Transmission Status: Pending to [facility]pharmacy #[id number] Other Amb Orders: Phase II, Outpatient Cardiac Rehab Location: None Selected Primary Care Physician: Esperanza Topete NP-C [Primary Care Provider] - Please Follow Up With: Jose Alfredo eFlton MD When: To be arranged by [facility] Disposition: Home Minutes spent on discharge:: 45 Patient Condition:: Stable Medical Necessity - Tobacco Use Smoking Status: Never smoker Meaningful Use Info Meaningful Use Diagnoses (Choose all that apply): None applicable
[2018-10-16] MEDS: Clopidogrel Bisulfate 75 MG Tablet PO (08:40)
[2018-10-16] MEDS: Lisinopril 40 MG Tablet PO (08:40)
[2018-10-16] MEDS: Aspirin E.C. 81 MG Tablet PO (08:40)
[2018-10-16] MEDS: Metoprolol Tartrate 25 MG Tablet PO (08:40)
[2018-10-16] MEDS: Anastrozole 1 MG Tablet PO (08:41)
[2018-10-16] MEDS: amLODIPine 10 MG Tablet PO (08:46)
--- NOTE | 2018-10-16 10:00 | EKG12_ITS ---
Test Reason : AM EKG Blood Pressure : / mmHG Vent. Rate : 065 BPM Atrial Rate : 065 BPM P-R Int : 226 ms QRS Dur : 096 ms QT Int : 442 ms P-R-T Axes : 106 -31 171 degrees QTc Int : 459 ms Sinus rhythm with 1st degree A-V block Left axis deviation Nonspecific ST and T wave abnormality Abnormal ECG Confirmed by YENNY BROTHERS ([id number]), newspaper managing editor SILVER BURROWS ([id number]) on 10/17/2018 1:55:02 PM Referred By: Jose Alfredo Felton Confirmed By:YENNY BROTHERS
[2018-10-16] MEDS: 0.9% NaCl VAD Flush IV (10:36)
--- NOTE | 2018-10-16 10:37 | NURSING ---
discharged with instructions per wheelchair in care of family
== END 2018-10-16 10:45 | disposition home or self-care (01) ==
LOC: CLSP 06:58 → ICU 10:30
PROVIDERS: Specialist; Family Provider Nurse Practitioner Primary Care; PCP Nurse Practitioner Primary Care; Referring Provider Internal Medicine Cardiovascular Disease; Visit Provider Internal Medicine Cardiovascular Disease
DX: I49.3 Ventricular premature depolarization (principal); I25.10 Atherosclerotic heart disease of native coronary artery without angina pectoris; I34.0 Nonrheumatic mitral (valve) insufficiency; I36.1 Nonrheumatic tricuspid (valve) insufficiency; I27.20 Pulmonary hypertension, unspecified; I10 Essential (primary) hypertension; I42.9 Cardiomyopathy, unspecified; R94.39 Abnormal result of other cardiovascular function study; R01.1 Cardiac murmur, unspecified; Z79.02 Long term (current) use of antithrombotics/antiplatelets; Z79.82 Long term (current) use of aspirin; Z79.899 Other long term (current) drug therapy; Z85.3 Personal history of malignant neoplasm of breast; Z92.21 Personal history of antineoplastic chemotherapy; Z95.5 Presence of coronary angioplasty implant and graft
CPT/HCPCS: 36415; 71046; 80048; 80053; 85025; 85027; 85347; 85610; 85730; 92928; 93005; 93458; 99152; 99153; J7030; J7040; A4216; C1725; C1769; C1874; C1887; C1894; C9600; J2405; Q9967

== ENCOUNTER → 2018-11-05 11:44 | Outpatient (CLI) | payer MEDICARE, OTHER, SELFPAY ==
[2018-10-15 10:44] VITALS: BMI 35.4
[2018-10-30 11:18] VITALS: BMI 33.0
--- NOTE | 2018-11-05 12:16 | PCM.CR.HP2 ---
CR - History & Physical - General Arrival date:: 11/05/18 Arrival time:: 12:00 Date of Referral:: 10/15/18 Date of CR Evaluation:: 11/05/18 Referring Physician: DR LONDONO Primary Diagnosis: PCI WITH STENT - History of Present Cardiac Event Onset Date: Enter Onset Date of cardiac illnesses in Comment field below Current stable Angina Pectoris:: No Acute Myocardial Infarction within 12 months:: No Coronary Artery Bypass Graft:: No Heart valve replacement or repair:: No PTCA or coronary stenting:: Yes Heart or Heart-Lung Transplant:: No Heart Failure EF <35%:: No - 43% Type of Symptoms:: NONE Interventions with present event:: STENT X1 Were there any complications?: NONE - Medications Home Medications: Ambulatory Orders Medication Instructions Recorded Aspirin [Low Dose Aspirin EC] 81 mg PO DAILY 09/17/17 anastrozole 1 mg tablet 1 mg PO DAILY 09/16/18 calcium carbonate-vitamin D3 600 1 cap PO DAILY cap 09/16/18 mg calcium-200 unit capsule quinapril 40 mg tablet 40 mg PO DAILY 09/16/18 amlodipine 10 mg tablet 10 mg PO DAILY #90 tab 10/30/18 atorvastatin 40 mg tablet 40 mg PO QHS #90 tab 10/30/18 clopidogrel 75 mg tablet 75 mg PO DAILY #90 tab 10/30/18 metoprolol tartrate 25 mg tablet 25 mg PO BID #180 tab 10/30/18 - Allergies Allergies/Adverse Reactions: Allergies No Known Allergies Allergy (Verified 09/16/18 15:03) CHARTED 09-14-17 - Sleep Disorder Evaluation Hx of Sleep Apnea: No Do you snore loudly (louder than talking or can be heard through closed doors)?: No Do you often feel tired/ fatigued/ sleepy during daytime?: No Has anyone observed you stop breathing during sleep?: No History of Hypertension (for STOP score): Yes STOP Results: Negative Advanced Directives - Advanced Directives Power of Map Compiler: Yes - PT ENCOURAGED TO BRING PAPERS TO [facility] Living Will: Yes Advance Directives Information Provided: Yes Advance Directives on File: No - PT STATES SHE WILL BRING TO [facility] DNR Order?:: No Past Medical History - Past Medical Illness Medical History: Past Medical History (Last Reviewed 10/30/18 @ 11:54 by NAKITA Pino) Atherosclerotic heart disease of [place] coronary artery without angina pectoris (Chronic) I25.10 Pulmonary hypertension (Chronic) I27.20 Nonrheumatic tricuspid valve regurgitation (Chronic) I36.1 Non-rheumatic mitral regurgitation (Chronic) I34.0 Premature ventricular contraction (Chronic) I49.3 Essential hypertension (Chronic) I10 Anxiety F41.9 Mass of right breast on mammogram N63.10 Breast cancer C50.919 Right H/O: hysterectomy Z90.710 HTN (hypertension) I10 - Past Surgical History Surgical History: Past Surgical History (Last Reviewed 10/30/18 @ 11:54 by NAKITA Pino) S/P coronary artery stent placement (Chronic) Onset Date: ~10/15/18 Z95.5 PTCA/SHALOM to prox LAD 10/15/18 H/O bladder repair surgery Z98.890 History of cholecystectomy Z90.49 - Family History Summary Family History: Family History (Last Reviewed 10/30/18 @ 11:54 by NAKITA Pino) Sister Breast cancer Sister Cancer Brain Other late entry reviwed 09-14-17 Social History - Smoking History Smoking Status: Never smoker - Alcohol Use Alcohol Usage: No - Substance Abuse Hx Substance Use: No - Occupation Occupation (List type of work in comments):: Retired - Hobbies, Recreation, Social Activities Hobbies: Other - LIKES [employer] COOK Recreational Activities: I am able to engage in most, but not all activities Social Environment - Status Marital Status: - Current Living Arrangements Living Environment:: Spouse - Children How many children do you have?: 7 Do any of your children live nearby?: Yes - DAUGHTER - Safety Do you feel safe in your surroundings?: Yes - Assistance Do you need any assistance at home?: NONE Review of Systems - Review of Systems Hints: Right click = Denies (Slash). Left click = Reports ([place]) Review of Present Symptoms: Reports: Appetite - Normal, Appetite - Special Diet, Sleep - Normal. Denies: Shortness of Breath at Rest, Shortness of Breath with Exertion, PVD, Operative Discomfort, Angina, Wound Healing, Dizziness/Lightheadedness, Fatigue, Heart Arrhythmia/Irregularities - Pain Is Patient Pain Free?: Yes Risk Factor Assessment - Vital Signs Temperature: 98.6 F Respiratory Rate: 12 Pulse Ox: 97 Blood Pressure: 124/68 Nailbeds:: PINK - Pulse Pulse Rate: 65 Pulse Rhythm: Regular - Hypertension How long have you been treated?: SEVERAL YEARS On medication(s)?: YES Blood Pressure Sitting - Left Arm: 124/68 - Blood Cholesterol/Lipids Total Cholesterol (mg/dL) Goal = less than 200 mg/dL: 158 HDL Cholesterol (mg/dL) Goal = less than 40 mg/dL: 61 LDL Cholesterol (mg/dL) Goal = less than 70 mg/dL: 84 - Diabetes Nutrition Referral for Diabetes: No - Obesity Height: 5 ft 2 in Weight:: 184 lb Weight in Pounds: 184.0 lbs Weight Source: Estimated by Patient Body Mass Index (BMI): 33.6 Nutritional Referral for Obesity: No - Physical Inactivity Physical Inactivity: Recreational activity - Risk Stratification Risk Guidelines: Lowest Risk: Risk Factor for Smoking, Risk Factor for Dyslipidemia, Risk Factor for Diabetes, Risk Factor for Hypertension, Risk Factor for Depression, Moderate Risk: Risk Factor for Obesity, Risk Factor for Sedentary Lifestyle - For Smoking Smoking Risk Guidelines: Smoking Low Risk: None or quit greater than 6 months ago. Smoking Moderate Risk: Smoker or quit 6 months or less ago. Smoking High Risk: Smoker - For Dyslipidemia Dyslipidemia Risk Guidelines: Low Risk: Moderate Risk: High Risk: 15-25% fat 25.1-29% fat >/= 30% fat. <7% sat fat 7-9% sat fat >9% sat fat. <150 mg chol 150-299 mg chol >/= 300 mg chol. LDL <100 LDL 100-129 LDL >/= 130. Chol/HDL ratio <5.0 Chol/HDL ratio 5.0-6.0 Chol/HDL ratio >6.0. Triglycerides <100 Triglycerides 100-149 Triglycerides >/= 150 - For Diabetes Mellitus Diabetes Risk Guidelines: Diabetes Low Risk: HgA1c <6.5% and/or FBG <120. Diabetes Moderate Risk: HgA1c 6.6-7.9% and/or FBG 120-180. Diabetes High Risk: HgA1c >/= 8% and/or FBG >180 - For Obesity/Overweight Obesity/Overweight Risk Guidelines: Obesity Low Risk: BMI <25.0. Obesity Moderate Risk: BMI 25-29.9. Obesity High Risk: BMI >/= 30.0 - For Hypertension Hypertension Risk Guidelines: Hypertension Low Risk: Systolic <120 and Diastolic <80. Hypertension Moderate Risk: Systolic 120-139 and Diastolic 80-89. Hypertension High Risk: Systolic >/= 140 and Diastolic >/= 90 - For Sedentary Lifestyle Sedentary Lifestyle Risk Guidelines: Sedentary Lifestyle Low Risk: >/= 1,500 kcal/week. Sedentary Lifestyle Moderate Risk: 700-1,499 kcal/week. Sedentary Lifestyle High Risk: < 700 kcal/week - For Depression Depression Risk Guidelines: Depression Low Risk: Not clinically depressed. Depression Moderate Risk: Mildly depressed. Depression High Risk: Clinically depressed - Family History Family History: Family History (Last Reviewed 10/30/18 @ 11:54 by NAKITA Pino) Sister Breast cancer Sister Cancer Other late entry reviwed 09-14-17 Motivation - Motivation to Participate On a scale of 1 to 10, how prepared are you to commit to attending program?: 10 What do you see as barriers to successfully being able to complete the program?: NONE What do you see as the benefits of succesfully completing the program? In other words, what do you hope to get out of participating in the program?: SAME ACTIVITY LEVEL SPOUSE Are there issues you are dealing with that will interfere with completing the program?: NONE Do you have a spouse or signficant other, family or friends who will help support you to complete the program?: SPOUSE
[2018-11-05 12:40] VITALS: BP 124/68; PULSE 65; RESP 12; TEMP 37; O2SAT 97; BMI 33.6
--- NOTE | 2018-11-05 12:57 | CR.ITP_ITS ---
General Information - General Information Admitting Diagnosis: PCI W/CORONARY STENT PLACEMENT - Education/Goals Barriers to Learning: Vision Impairment Individual Counseling: Initial Assessment: Abnormal Cholesterol Levels, High Blood Pressure, Overweight/Obesity Cardiac Rehabilitation Goals: 1. Maintain the individual as the primary focus of care. 2. To improve the patient's quality of life. 3. Identification of cardiac risk factors and provide cardiac risk factor management. 4. Enhance the psychosocial status of the patient. 5. Reconditioning enough to allow the patient to resume customary activities. 6. Control symptoms of cardiac disease Scale for measuring improvement of personal goals: Enter appropriate number in Comments. 2 = Unchanged. 3 = Slightly Better. 4 = Moderate Improvement. 5 = Met my Goal Personal Goals: Initial Assessment: Improve energy level, Participate in home exercise program, Improve diet and eating habits (eat healthier), Control risk factors (learn risk factor modification) Exercise - Initial Assessment - Visit Date of Eval: 11/05/18 Session #:: 0 - SCHEDULED TO START CR - Stages of Change Stages of Change:: Action - Physician Prescribed Exercise Modalities: Treadmill, Airdyne, NuStep, SciFit Frequency (days/week): 3x/week for 12 weeks [36 sessions] Duration (Minutes):: 30-45 MINUTES Intensity: 60-80% age predicted maximum heart rate reserve METs - Progression: 0.5-1.0 MET, RPE 11-14 WEEK: 2.5 Target Heart Rate:: 92-118 - Hypertension Do any of the following apply?: Yes, Medication, Diet Resting Blood Pressure:: 132/78 - Intervention Home Exercise/Activity Goal:: Sitting Time <3 hrs/day - Education Goals:: Warm-up, RPE DEMETRIUS Scale, S/S, Safe Exercise, Self-Monitoring - Exercise Program Goals Exercise Program Goals: Aerobic Activity >30 min Nutrition - Initial Assessment - Program Goals Nutrition Program Goals: LDL <70. Total Cholesterol <200. HDL >45. Triglycerides <150. HgbA1C <7%. BMI <25 - Visit Date of Assessment:: 11/05/18 - Stages of Change Stages of Change:: Action - Lipids Total Cholesterol (mg/dL) Goal = less than 200 mg/dL: 158 - 06/02/2015 HDL Cholesterol (mg/dL) Goal = less than 45 mg/dL: 61 LDL Cholesterol (mg/dL) Goal = less than 70 mg/dL: 84 Triglycerides (mg/dL) Goal = less than 150 mg/dL: 67 - Diabetes Diabetes:: No Insulin: No Non-Insulin Dependent?: No Do you monitor your blood sugar at home?: No - Weight Management Height: 5 ft 1 in Weight:: 175 lb Body Fat %:: 33.0 - Intervention Referral to dietitian:: Yes - PATIENT COULD BENEFIT FROM STRUCUTRED WEIGHT LOSS AND CARDIAC DIET GUIDANCE Referral to Diabetic Clinic:: No Will attend diet classes:: Yes - Education Gave educational materials for:: Healthy eating Tobacco - Initial Assessment - Program Goals Tobacco Program Goals: Complete smoking cessation. Attend education classes. Improve Knowledge Test score - Stage of Change Stages of Change:: Action - Learning Barriers Learning Barriers: Hearing, Vision, Ready to Learn - Family Support Do you have family support?: Yes - Tobacco Use Tobacco Use: Non-smoker - PATIENT NEVER SMOKED Do you use smokeless tobacco?: No - Intervention Smoking Cessation Referral:: No Individual Education/Counseling:: No Education Schedule Given:: Yes - Education Attended class for:: Treating Heart Disease, How The Heart Works, What it means to have Heart Disease, How Coronary Artery Disease is Diagnosed, Heart Procedures, What Heart Medications Do, Risk Factors & Modifications, Living an Active Life, Nutrition, Emotions & Heart Disease, Stress Management & Relaxation, Sleep Disorders & Heart Disease Psychosocial - Initial Assess - Target Goals Target Goals: Assess presence or absence of depression. Using a valid screening tool, maximizes coping skills. Positive support system - Stages of Change Stages of Change:: Action - Psychosocial Test Tool Used:: HANDS Depression Questionnaire - Intervention PS - Interventions: Yes Attend Stress Management Classes, No Referral to Mental Health, No Referral to [facility] Case Management, No Referral to Physician, No Uses Stress Management Skills - Education Gave educational materials for:: Coping techniques, Signs & symptoms of depression, Stress management, Relaxation techniques - Patient/Program Goal Preventative Medication(s):: Aspirin, KACIE inhibitor, Clopidogrel, Beta tony, Statin/lipid - Assistive Devices Assistive Devices:: None Fall Risk Assessed:: Yes Patient Health Questionnaire Initial Assessment 1. Little interest or pleasure in doing things: Not at all 2. Feeling down, depressed, or hopeless: Not at all 3. Trouble falling or staying asleep, or sleeping too much: Several days 4. Feeling tired or having little energy: Not at all 5. Poor appetite or overeating: Not at all 6. Feeling bad about yourself -- or that you are a failure or have let yourself or your family down: Not at all 7. Trouble concentrating on things, such as reading the newspaper or watching television: Not at all 8. Moving or speaking so slowly that other people could have noticed. Or the opposite - being so fidgety or restless that you have been moving around a lot more than usual: Not at all 9. Thoughts that you would be better off , or of hurting yourself in some way: Not at all How difficult have these problems made it for you to do your work, take care of things at home, or get along with other people?: Not difficult at all Total Score: 1 VITALY-Q SV Test - Statements CAD is a disease of the arteries in the heart: False Examples of risk factors for heart disease: True Angina is chest pain or discomfort: True The benefits of resistance training include: False Eating more meat and dairy products: False Anti-platelet medications such as aspirin are important: True The only effective way to manage stress: True An exercise warm-up slowly increases heart rate: True Prepared, processed foods usually have high sodium: True Depression is common after a heart attack: True The statin medications lower cholesterol: I Don't Know To control blood pressure, lower the amount of sodium: True If someone gets chest discomfort during walking: False Transfats are partially hydrogenated vegetable oils: I Don't Know Sleep apnea that is not treated increases the risk: True To control cholesterol, one should become a vegetarian: False Someone knows if he/she is exercising at the right level: I Don't Know Diabetes cannot be prevented with exercise & health eating: False Stress is a large risk for heart attack: I Don't Know A diet that can help lower blood pressure is rich in: True - Total Score Total Correct Responses: 13 Self-Efficacy Initial Assessment We would like to know how confident you are in doing certain activities. Please select your confidence level for:: Select your confidence level for the following using the scale 1-10 where 1 is not at all confident and 10 is totally confident. Your score is the average of all 6 responses. Fatigue: How confident are you that you can keep the fatigue caused by your disease from interfering with the things you want to do? Select Number: 10 Physical Discomfort or Pain: How confident are you that you can keep the physical discomfort or pain of your disease from interfering with the things you want to do? Select Number: 10 Emotional Distress: How confident are you that you can keep the emotional distress caused by your disease from interfering with the things you want to do? Select Number: 10 Other Symptoms or Health Problems: How confident are you that you can keep other symptoms or health problems from interfering with the things you want to do? Select Number: 10 Different Tasks and Activities: How confident are you that you can do the different tasks and activities needed to manage your health condition so as to reduce your need to see a doctor? Select Number: 10 Medication: How confident are you that you can do things other than just taking medication to reduce how much your illness affects your everyday life? Select Number: 10 Total Score:: 10 Nutrition Survey - Nutrition Survey Instructions Scoring Instructions: Scoring is as follows: Yes = 1 points. No = 0 point. Patient score that is >/=12 is considered to be at potential nutritional risk and could benefit from a referral to a registered dietitian. - Nutrition Survey Initial Have you lost >10 lbs over the past 2 months without trying?: No Are you following a special diet at home for diabetes, low fat, or low salt?: No Are you interested in meeting with a dietitian for help understanding your diet?: Yes Do you eat less than 3 meals a day?: Yes Do you eat fatty meats (z[place], sausage, ribs, etc), fried foods, desserts, large amounts of salad dressings, margarine, butter, or cheese most days?: No Do you have food allergies? [Enter types in comment field]: No Do you eat in restaurants more than 3 times a week?: No Do you season food with salt, seasoning salt, or garlic salt?: No Do you used canned, boxed, frozen meals, or soups, seasoning packets?: Yes Total Score:: 3
[2018-11-05 13:29] VITALS: BP 132/78
== END ==
PROVIDERS: Family Provider Nurse Practitioner Primary Care; PCP Nurse Practitioner Primary Care; Referring Provider Internal Medicine Cardiovascular Disease; Visit Provider Internal Medicine Cardiovascular Disease
DX: I25.10 Atherosclerotic heart disease of native coronary artery without angina pectoris (principal); Z95.5 Presence of coronary angioplasty implant and graft

== ENCOUNTER 2018-11-20 15:15 | Outpatient (RCR) | payer MEDICARE, OTHER, SELFPAY ==
[2018-11-05 12:40] VITALS: BMI 33.6
--- NOTE | 2018-12-06 09:57 | CR.ITP_ITS ---
Exercise - 30-day Assessment - Visit Date of Eval: 12/06/18 Session #:: 6 - Last scheduled visit was on . Patient stated she is to be off pending more diagnostic tests etc. per her PCP. - Stages of Change Stages of Change:: Relapse - Physician Prescribed Exercise Modalities: Biodyne, NuStep, SciFit Frequency (days/week): 3 - currently not attending CR. Duration (Minutes):: 30-45 Intensity: 60-80% age predicted maximum heart rate reserve METs - Progression: 0.5-1.0 MET, RPE 11-14 WEEK: 2.5 METs Target Heart Rate:: 90-118 w max HR 108 - Hypertension Resting Blood Pressure:: 98/58 Peak Exercise Blood Pressure:: 116/64 Medication Changes:: No - Intervention Home Exercise/Activity Goal:: Sitting Time <3 hrs/day - Education Goals:: Warm-up, RPE DEMETRIUS Scale, S/S, Safe Exercise, Self-Monitoring - Exercise Program Goals Exercise Program Goals: Aerobic Activity >30 min Nutrition - Initial Assessment - Program Goals Nutrition Program Goals: LDL <70. Total Cholesterol <200. HDL >45. Triglycerides <150. HgbA1C <7%. BMI <25 - Diabetes Do you monitor your blood sugar at home?: No Nutrition - 30-Day Assessment - Program Goals Nutrition Program Goals: LDL <70. Total Cholesterol <200. HDL >45. Triglycerides <150. HgbA1C <7%. BMI <25 - Visit Date of Eval: 12/06/18 - not attended CR since 11/20/2018 - Stages of Change Stages of Change:: Relapse - Lipids Has the patient seen the dietitian?: No - Diabetes Diabetes:: No - Weight Management Weight:: 184 lb - Intervention Referral to dietitian:: No Referral to Diabetic Clinic:: No Will attend diet classes:: Yes - Education Attended class for:: Healthy eating Tobacco - Initial Assessment - Program Goals Tobacco Program Goals: Complete smoking cessation. Attend education classes. Improve Knowledge Test score - Learning Barriers Learning Barriers: Hearing, Vision, Ready to Learn Tobacco - 30-Day Assessment - Program Goals Tobacco Program Goals: Complete smoking cessation. Attend education classes. Improve Knowledge Test score - Stage of Change Stages of Change:: Relapse - Learning Barriers Learning Barriers: Participates in education - Family Support Do you have family support?: Yes - Tobacco Use Tobacco Use: Non-smoker Do you use smokeless tobacco?: No - Intervention Smoking Cessation Referral:: No Education Schedule Given:: Yes - Education Attended class for:: Treating Heart Disease, How The Heart Works, What it means to have Heart Disease Psychosocial - Initial Assess - Target Goals Target Goals: Assess presence or absence of depression. Using a valid screening tool, maximizes coping skills. Positive support system - Psychosocial Test Tool Used:: HANDS Depression Questionnaire - Assistive Devices Fall Risk Assessed:: Yes Psychosocial - 30-Day Assess - Target Goals Target Goals: Assess presence or absence of depression. Using a valid screening tool, maximizes coping skills. Positive support system - Stages of Change Stages of Change:: Action - Psychosocial Test Tool Used:: HANDS Depression Questionnaire - Intervention PS - Interventions: Yes Attend Stress Management Classes, No Referral to Mental Health, No Referral to [facility] Case Management, No Referral to Physician, No Uses Stress Management Skills - Education Attended classes for:: Coping techniques, Signs & symptoms of depression, Stress management, Relaxation techniques - Patient/Program Goal Preventative Medication(s):: Aspirin, KACIE inhibitor, Clopidogrel, Beta tony, Statin/lipid - Assistive Devices Assistive Devices:: None Fall Risk Assessed:: Yes Patient Health Questionnaire 30-Day Re-eval Assessment 1. Little interest or pleasure in doing things: More than half the days 2. Feeling down, depressed, or hopeless: Several days 3. Trouble falling or staying asleep, or sleeping too much: Several days 4. Feeling tired or having little energy: More than half the days 5. Poor appetite or overeating: More than half the days 6. Feeling bad about yourself -- or that you are a failure or have let yourself or your family down: Several days 7. Trouble concentrating on things, such as reading the newspaper or watching television: More than half the days 8. Moving or speaking so slowly that other people could have noticed. Or the opposite - being so fidgety or restless that you have been moving around a lot more than usual: Not at all 9. Thoughts that you would be better off , or of hurting yourself in some way: Not at all Total Score: 11 Self-Efficacy 30-Day Re-eval Assessment We would like to know how confident you are in doing certain activities. Please select your confidence level for:: Select your confidence level for the following using the scale 1-10 where 1 is not at all confident and 10 is totally confident. Your score is the average of all 6 responses. Fatigue: How confident are you that you can keep the fatigue caused by your disease from interfering with the things you want to do? Select Number: 4 Physical Discomfort or Pain: How confident are you that you can keep the physical discomfort or pain of your disease from interfering with the things you want to do? Select Number: 5 Emotional Distress: How confident are you that you can keep the emotional distress caused by your disease from interfering with the things you want to do? Select Number: 4 Other Symptoms or Health Problems: How confident are you that you can keep other symptoms or health problems from interfering with the things you want to do? Select Number: 4 Different Tasks and Activities: How confident are you that you can do the dif ferent tasks and activities needed to manage your health condition so as to reduce your need to see a doctor? Select Number: 3 Medication: How confident are you that you can do things other than just taking medication to reduce how much your illness affects your everyday life? Select Number: 5 Total Score:: 4
[2018-12-06 10:02] VITALS: BP 116/64; BP 98/58
== END 2018-12-07 23:59 ==
LOC: CR 15:15
PROVIDERS: Family Provider Nurse Practitioner Primary Care; PCP Nurse Practitioner Primary Care; Referring Provider Internal Medicine Cardiovascular Disease; Visit Provider Internal Medicine Cardiovascular Disease
DX: I25.10 Atherosclerotic heart disease of native coronary artery without angina pectoris (principal); Z95.5 Presence of coronary angioplasty implant and graft
CPT/HCPCS: 93798

== ENCOUNTER → 2018-11-27 09:27 | Outpatient (CLI) | payer MEDICARE, OTHER, SELFPAY ==
[2018-11-05 12:40] VITALS: BMI 33.6
[2018-11-27 10:55] LABS: AST(SGOT) 19 U/L (15-37); Alanine Aminotransfer ALT/SGPT 22 U/L (13-56); Albumin, Serum 3.5 g/dL (3.2-5.0); Alkaline Phosphatase 94 U/L (45-117); Bilirubin, Direct 0.16 mg/dL (0.00-0.30); Cholesterol 115 mg/dL (200); Globulin 3.9 g/dL (2.2-4.2); High Density Lipoprotein 58 mg/dL; Protein, Total 7.4 g/dL (6.4-8.2); Triglycerides 86 mg/dL; Very Low Density Lipoprotein 17 mg/dL (5-40)
== END ==
PROVIDERS: Family Provider Nurse Practitioner Primary Care; PCP Nurse Practitioner Primary Care; Referring Provider Physician Assistant Medical; Visit Provider Physician Assistant Medical
DX: I25.10 Atherosclerotic heart disease of native coronary artery without angina pectoris (principal)
CPT/HCPCS: 36415; 80061; 80076

== ENCOUNTER → 2018-12-02 11:33 | Outpatient (CLI) | payer MEDICARE, OTHER, SELFPAY ==
[2018-12-02 11:04] VITALS: BMI 34.7
--- NOTE | 2018-12-02 11:36 | UEAS_ITS ---
Reason For Study: Right arm pain. S/P cath in October RIGHT Right Radial velocity = 72.8 cm/sec. Right Radial veins are compressible. Right Cephalic vein is compressible. No evidence of pseudoaneurysm. Prelim to Nick. Interpretation Summary The right radial artery is patent, demonstrating normal, pulsatile arterial flow. The radial veins and cephalic vein appear patent and compressible. There is no evidence pseudoaneurysm or arterio- venous fistula. Ordering Physician: Morelia Romero Referring Physician: Esperanza Topete Performed By: Devorah Duffy RVT
== END ==
PROVIDERS: Family Provider Nurse Practitioner Primary Care; PCP Nurse Practitioner Primary Care; Referring Provider Physician Assistant Medical; Visit Provider Physician Assistant Medical
DX: M79.601 Pain in right arm (principal); S55.191A Other specified injury of radial artery at forearm level, right arm, initial encounter; X58.XXXA Exposure to other specified factors, initial encounter; Y93.9 Activity, unspecified; Y92.9 Unspecified place or not applicable; Y99.9 Unspecified external cause status
CPT/HCPCS: 93923

== ENCOUNTER 2018-12-11 10:05 | Outpatient (RCR) | payer MEDICARE, OTHER, SELFPAY ==
[2018-12-02 11:04] VITALS: BMI 34.7
[2018-12-08 00:11] VITALS: BP 116/64; BP 98/58
== END 2019-01-06 23:59 ==
LOC: CR 10:05
PROVIDERS: Family Provider Nurse Practitioner Primary Care; PCP Nurse Practitioner Primary Care; Referring Provider Internal Medicine Cardiovascular Disease; Visit Provider Internal Medicine Cardiovascular Disease
DX: I25.10 Atherosclerotic heart disease of native coronary artery without angina pectoris (principal); Z95.5 Presence of coronary angioplasty implant and graft
CPT/HCPCS: 93798

== ENCOUNTER → 2018-12-17 13:41 | Outpatient (CLI) | payer MEDICARE, OTHER, SELFPAY ==
[2018-12-17 12:57] VITALS: BMI 32.9
--- NOTE | 2018-12-17 13:45 | RAD_ITS ---
STUDY: X-RAY - RIGHT SHOULDER REASON FOR EXAM: Female, 78 years old. Pain. TECHNIQUE: 4 view(s) of the shoulder. COMPARISON: None. FINDINGS: There is cephalad migration of the humeral head consistent with rotator cuff pathology. There is degenerative arthrosis of the acromioclavicular joint without inferior osseous spur formation. Normal acromion. There is demineralization of the humerus and visualized osseous structures. The soft tissue structures are unremarkable. There is no demonstrated fracture. Normal visualized pulmonary apex. RAD/Shoulder min 2 Views IMPRESSION: No acute fracture or dislocation. Degenerative changes. Possible complete rotator cuff tear. Electronically Signed: Matheus Justice MD at 16:14 EDT , Service support ,
== END ==
PROVIDERS: Family Provider Nurse Practitioner Primary Care; PCP Nurse Practitioner Primary Care; Referring Provider Physician Assistant Medical; Visit Provider Physician Assistant Medical
DX: M25.511 Pain in right shoulder (principal)
CPT/HCPCS: 73030

== ENCOUNTER → 2019-11-27 08:28 | Outpatient (CLI) | payer MEDICARE, OTHER, SELFPAY ==
[2019-10-17 10:30] VITALS: BMI 37.1
[2019-11-27 10:37] LABS: AST(SGOT) 20 U/L (15-37); Alanine Aminotransfer ALT/SGPT 19 U/L (13-56); Albumin, Serum 3.7 g/dL (3.2-5.0); Alkaline Phosphatase 92 U/L (45-117); Bilirubin, Direct 0.17 mg/dL (0.00-0.30); Cholesterol 109 mg/dL (200); Globulin 3.6 g/dL (2.2-4.2); High Density Lipoprotein 52 mg/dL; Protein, Total 7.3 g/dL (6.4-8.2); Triglycerides 97 mg/dL; Very Low Density Lipoprotein 19 mg/dL (5-40)
== END ==
PROVIDERS: PCP Nurse Practitioner Family; Referring Provider Internal Medicine Cardiovascular Disease; Visit Provider Internal Medicine Cardiovascular Disease
DX: E78.00 Pure hypercholesterolemia, unspecified (principal)
CPT/HCPCS: 36415; 80061; 80076

== ENCOUNTER 2020-03-02 10:40 | Observation (INO) | payer MEDICARE, OTHER, SELFPAY ==
[2019-10-17 10:30] VITALS: BMI 37.1
[2020-03-02 10:43] VITALS: BP 91/63; PULSE 84; RESP 18; TEMP 36.4; O2SAT 99; BMI 34.7
--- NOTE | 2020-03-02 11:39 | CT_ITS ---
INDICATION: DIZZINESS, N/V/D X 1 WK, LOW BP TODAY, HX-BREAST CA EXAMINATION: CT BRAIN - CT Head or Brain W/O Contrast Injection CLINICAL HISTORY: 80 years Female, DIZZINESS, N/V/D X 1 WK, LOW BP TODAY, HX-BREAST CA COMPARISON: None. TECHNIQUE: A CT scan of the head was performed without IV contrast in the axial plane. Coronal and sagittal reconstruction images were also obtained. This exam was performed according to our departmental dose-optimization program, which includes automated exposure control, adjustment of the mA and/or kV according to patient size and/or use of iterative reconstruction technique. FINDINGS: The leoncio, medulla, and cerebellum appear to be normal. The ventricles and sulci are normal in size and shape. The basal ganglia appear to be normal. The inner and outer tables of the skull are intact. The frontal, ethmoid, maxillary, and sphenoid sinuses are normal. The mastoid air cells are normal. CT/Brain/Head without Contrast IMPRESSION: Normal CT scan of the head. Electronically Signed: Titi Sena, at 13:50 EST Tel , Service support ,
--- NOTE | 2020-03-02 11:42 | RAD_ITS ---
EXAM DESCRIPTION: PORTABLE AP CHEST CLINICAL HISTORY: 80 years Female, DIZZINESS, HYPOTENSION DIZZINESS, HYPOTENSION COMPARISON: Previous chest obtained on 10/08/2018 FINDINGS: A left PICC line is noted in place with its tip in the superior vena cava. The rest of the thorax is intact. The heart and mediastinum appear to be within normal limits. The lungs demonstrate bilateral peripheral alveolar infiltrates which were previously not seen. These types of alveolar infiltrates represent pneumonic infiltrates and are frequently found in patients with COVID-19 pneumonia. RAD/Chest 1 View (Portable) IMPRESSION: Bilateral pneumonic infiltrates are identified frequently associated with COVID-19 pneumonia. Electronically Signed: Titi Sena, at 13:53 EST Tel , Service support ,
--- NOTE | 2020-03-02 11:42 | EKG12_ITS ---
Test Reason : DIZZINESS Blood Pressure : / mmHG Vent. Rate : 084 BPM Atrial Rate : 084 BPM P-R Int : 196 ms QRS Dur : 082 ms QT Int : 400 ms P-R-T Axes : 063 -15 068 degrees QTc Int : 472 ms Normal sinus rhythm Normal ECG Confirmed by MINDY GODOY, KATE ([id number]), communications editor JOSUE BUENROSTRO ([id number]) on 03/05/2020 10:56:52 AM Referred By: FABIANA Confirmed By:KATE GUILLEN MD
--- NOTE | 2020-03-02 11:44 | ED.VISSUMM ---
- ER Visit Summary Date of Service: 03/02/20 Chief Complaint: Dizziness History of Present Illness: The patient is a 80 F who presents with dizziness with nausea, vomiting, and diarrhea for the past week. Patient states her dizziness feels like she is off balance and spinning. Patient states nothing makes it better or worse. Patient denies any fevers or chills. Patient denies any chest pain or shortness of breath. Patient denies any dysuria or hematuria. Patient denies any headaches or hearing changes. Patient denies any tinnitus. Patient saw her primary care physician today who referred her to the emergency department because her blood pressure was low. Physical Examination: Vital signs are stable except for initial blood pressure of 91/63. Repeat blood pressure was 103/65. Patient is afebrile. Patient is in no acute distress. Oral mucosa is pink and moist. Neck is supple. Trachea is midline. There is no JVD. Heart was regular rate and rhythm. Lungs are clear and equal bilaterally. Abdomen is soft. Bowel sounds are normal. There is mild left upper quadrant tenderness. There is no rebound or guarding noted. Cranial nerves II through XII are intact. There are no focal motor or sensory deficits. Test Results: CBC is normal. Comprehensive metabolic profile was obtained. Potassium was elevated at 5.5 but it was a hemolyzed specimen. Creatinine was 2.05 which is increased from previous results. Troponin was normal. Portable 1 view chest x-ray was obtained. On my interpretation, lung bravo show bilateral alveolar infiltrates peripherally. There is normal cardiac silhouette. A left PICC line is noted to be in place. Bony thorax is normal. Radiologist also interpreted the x-ray and agrees. He noted that this type of infiltrate is frequently seen in COVID-[address] scan of the brain was obtained. There is no acute intracranial abnormality. This was interpreted by the radiologist and reviewed by myself. Emergency Department Course and Treatment: Patient was given IV fluids and oral Valium. Patient states she still feels dizzy. Patient was advised of her findings. COVID-19 test was ordered. Case was discussed with the hospitalist. Patient will be admitted. Patient understands and is agreeable with the plan. All questions were answered. Disposition: Admit to hospital Impression: 1. Acute kidney injury 2. Covid pneumonia This note was generated with [employer] software. It may contain incorrect words, spelling, and punctuation that were not noted in review of the chart prior to signing ED Disposition - Plan for ED Patient: Disposition: Acute Care Hospital [facility] Diagnosis: Acute kidney injury, Pneumonia due to COVID-19 virus Referrals: Marta Kelly FLOWER GROWER, FLOWER GROWER-C [Primary Care Provider] -
[2020-03-02 12:08] LABS: Absolute Lymphocyte Count 0.98 X10^3/uL (0.83-4.51); Absolute Neutrophil Count 5.5 X10^3/uL (2.0-7.7); Basophil# 0.04 X10^3/uL; Basophil% 0.6 % (0-1); Hematocrit 44.2 % (37-47); Hemoglobin 14.2 g/dL (12.0-15.0); Lymphocyte # 0.98 X10^3/ul (4.0); Lymphocyte % 13.6 % (19-41); Mean Corp Hgb Conc 32.1 g/dL (32-36); Mean Corpuscular Hgb 28.7 pg (27.0-32.0); Mean Corpuscular Volume 89.3 fL (81-99); Mean Platelet Vol. 11.1 fl (6.2-12.0); Monocyte# 0.66 X10^3/uL; Monocyte% 9.2 % (0-10); NRBC Flagged by Analyzer 0 % (0-5); Neutrophil # 5.46 X10^3/uL (2.7-7.7); Neutrophil % 75.9 % (47-70); Platelet Count 294 K/mm3 (150-450); RBC Distribution Width CV 14.2 % (11.6-14.6); RBC Distribution Width SD 45.4 fl (35.1-43.9); Red Blood Count 4.95 M/mm3 (4.2-5.4); White Blood Count 7.2 K/mm3 (4.4-11.0)
[2020-03-02] MEDS: diazePAM 5 MG Tablet 2.5 MG PO (12:23)
[2020-03-02 13:17] LABS: ALB/GLOB Ratio 0.8 RATIO (0.9-2.4); AST(SGOT) 180 U/L (15-37); Alanine Aminotransfer ALT/SGPT 50 U/L (13-56); Albumin, Serum 3.3 g/dL (3.2-5.0); Alkaline Phosphatase 143 U/L (45-117); Anion Gap 11 (5-15); BUN 25 mg/dL (7-18); BUN/Creat Ratio 12.2 RATIO (10-20); Chloride 107 mmol/L (98-107); Creatinine, Serum 2.05 mg/dL (0.55-1.02); EST Glomerular Filtration Rate 25 mL/min (>60); Est Glom Filt Rate - Afr Amer 30 mL/min (>60); Globulin 3.9 g/dL (2.2-4.2); Glucose 101 mg/dL (74-106); Potassium 5.5 mmol/L (3.5-5.1); Protein, Total 7.2 g/dL (6.4-8.2); Sodium Level 136 mmol/L (136-145)
[2020-03-02 14:20] VITALS: BP 101/65; BP 102/56; BP 97/76; PULSE 102; PULSE 105; PULSE 143
[2020-03-02 15:02] LABS: Mucous, Urine 0 SEEN /hpf (<or=2+); Red Blood Cells-Urine 0 SEEN /hpf (0-5); Squamous Epithelial Cells - UA 0 SEEN /hpf (5-10); White Blood Cells 0 SEEN /hpf (0-5)
[2020-03-02 15:10] LABS: Color, Urine Yellow (Yellow); Glucose, Dipstick Normal (Normal); Ketone-Dipstick 15 mg/dl (Negative); Leukocyte Esterase-Dipstick 25 /ul (Negative); Nitrite-Dipstick Negative (Negative); Occult Blood-Urine Negative /ul (Negative); Protein-Dipstick 30 mg/dl (Negative); Specific Gravity, Urine 1.025 (1.002-1.030); Urine Clarity Sl. Cloudy (Clear); Urine Urobilinogen 1 mg/dl (Normal)
[2020-03-02 15:22] LABS: Urine Bilirubin Dipstick 1 mg/dL (Negative)
--- NOTE | 2020-03-02 15:36 | NURSING ---
DR MIMS FOR DR ABDUL
--- NOTE | 2020-03-02 15:52 | NURSING ---
MS2 COVID [place] ACUTE KIDNEY INJURY, COVID PNEUMONIA
[2020-03-02 15:55] VITALS: BP 112/63; PULSE 83; RESP 18; TEMP 36.3; O2SAT 96
[2020-03-02 16:09] VITALS: BMI 35.7
[2020-03-02 16:17] VITALS: BMI 34.8
[2020-03-02 16:35] LABS: Amorphous Sediment 2+; Bacteria 3+ /hpf (None Seen); Hyaline Cast 0-5 SEEN /lpf (0-5)
--- NOTE | 2020-03-02 16:44 | HP.PCM_ITS ---
<Esperanza Null HOME CARE AND HOME HEALTH AIDES TEACHER - Last Filed: 03/02/20 16:58> Problem List (1) Acute kidney injury Status: Acute (2) Pneumonia due to COVID-19 virus Status: Ruled-out (3) Presence of stent in coronary artery Status: Chronic Comment: PTCA/SHALOM to prox LAD 10/15/18 (4) Atherosclerotic heart disease of [place] coronary artery without angina pectoris Status: Chronic (5) Abnormal stress test Status: Chronic (6) Pulmonary hypertension Status: Chronic (7) Nonrheumatic tricuspid valve regurgitation Status: Chronic (8) Non-rheumatic mitral regurgitation Status: Chronic (9) Premature ventricular contraction Status: Chronic (10) Essential hypertension Status: Chronic (11) Cancer of right female breast Status: Chronic History of Present Illness Date of Admission: 03/02/20 Chief Complaint: Diarrhea, nausea/vomiting, weakness. The patient is a 80 year old F who presents emergency room due to diarrhea, nausea, vomiting and weakness. Patient reports her symptoms have been ongoing for 2 weeks. She reports poor appetite/oral intake and altered taste and smell. She denies fever, chills. She denies abdominal pain. She denies shortness of breath, cough. Patient states she was started on an antibiotic recently, she is unsure why she was prescribed it. Per pharmacy records, she was prescribed Bactrim 02/17/2020. Patient lives at home with her . She states he has not had any ill symptoms. She denies exposure to Covid. She states her and her have been very cautious and even avoiding family due to Covid. She has a past medical history of CAD with history of stent, hypertension, hyperlipidemia, history of breast cancer. Past Medical History Past Medical History (Chronic Problems): Chronic Problems (Last Reviewed 10/17/19 @ 10:31 by Morelia Coto) Presence of stent in coronary artery (Chronic ~10/15/18) PTCA/SHALOM to prox LAD 10/15/18 Atherosclerotic heart disease of [place] coronary artery without angina pectoris (Chronic) Abnormal stress test (Chronic) Pulmonary hypertension (Chronic) Nonrheumatic tricuspid valve regurgitation (Chronic) Non-rheumatic mitral regurgitation (Chronic) Premature ventricular contraction (Chronic) Essential hypertension (Chronic) Cancer of right female breast (Chronic) Medical History: Medical History (Last Reviewed 10/17/19 @ 10:31 by Morelia Coto) Presence of stent in coronary artery (Chronic) Onset Date: ~10/15/18 Z95.5 PTCA/SHALOM to prox LAD 10/15/18 Atherosclerotic heart disease of [place] coronary artery without angina pectoris (Chronic) I25.10 Pulmonary hypertension (Chronic) I27.20 Nonrheumatic tricuspid valve regurgitation (Chronic) I36.1 Non-rheumatic mitral regurgitation (Chronic) I34.0 Premature ventricular contraction (Chronic) I49.3 Essential hypertension (Chronic) I10 Anxiety F41.9 Mass of right breast on mammogram N63.10 Breast cancer C50.919 Right HTN (hypertension) I10 Allergies No Known Allergies Allergy (Verified 03/02/20 10:41) CHARTED 09-14-17 Home Medications: Ambulatory Orders Medication Instructions Recorded Aspirin [Low Dose Aspirin EC] 81 mg PO DAILY 09/17/17 anastrozole 1 mg tablet 1 mg PO DAILY 09/16/18 quinapril 40 mg tablet 40 mg PO DAILY 09/16/18 Amlodipine Besylate [Norvasc] 10 mg PO DAILY 03/02/20 Atorvastatin Calcium 40 mg PO QHS 03/02/20 Clopidogrel Bisulfate [Clopidogrel] 75 mg PO DAILY 03/02/20 Metoprolol Tartrate 25 mg PO BID 03/02/20 Surgical History: Surgical History (Last Reviewed 03/02/20 @ 16:49 by Esperanza Null HOME CARE AND HOME HEALTH AIDES TEACHER, HOME CARE AND HOME HEALTH AIDES TEACHER-C) Presence of coronary angioplasty implant and graft Onset Date: ~10/15/18 Z95.5 PTCA/SHALOM to prox LAD 10/15/18 H/O bladder repair surgery Z98.890 H/O: hysterectomy Z90.710 History of cholecystectomy Z90.49 S/P coronary artery stent placement (Inactive) Onset Date: ~10/15/18 Z95.5 PTCA/SHALOM to prox LAD 10/15/18 Psychiatric History: No pertinent psych hx MANDOLIN REPAIRER History: No pertinent MANDOLIN REPAIRER history Lives: Spouse/ Significant Other Smoking Status: Never smoker Alcohol: None Drugs: None - *Family History Maternal Family History: Family History (Last Reviewed 10/17/19 @ 10:31 by Morelia Coto) Sister Breast cancer Sister Cancer Other late entry reviwed 09-14-17 History Items: - - Denies known maternal medical history including cardiac history Paternal Family History: Family History (Last Reviewed 10/17/19 @ 10:31 by oMrelia Coto) Sister Breast cancer Sister Cancer Other late entry reviwed 09-14-17 History Items: - - Denies known paternal medical history including cardiac history Review of Systems Constitutional: Reports: Malaise, Weakness. Denies: Chills, Fever, Weight Change HEENT: Denies: Head Aches, Sinus Congestion, Sinus Drainage Cardiovascular: Denies: Chest Pain, Palpitations Respiratory: Denies: Cough, Shortness of breath at rest, Sputum production Gastrointestinal: Reports: Diarrhea, Nausea, Vomiting. Denies: Abdominal Pain Genitourinary: Denies: Dysuria Musculoskeletal: Denies: Joint Pain, Joint Tenderness Skin: Denies: Rash, Wounds Neurological: Denies: Numbness, Tingling, Focal weakness Psychiatric: Denies: Anxiety, Depression, Homicidal Ideations, Suicidal Ideations Hematologic/ Lymphatic: Denies: Easy Bruising, Easy Bleeding VTE Information - Inpt Only VTE Present on Admission: No VTE Mechan Device Prophylaxis: None VTE Pharm Prophylaxis ordered?: Yes Patient Problems: Active and Suspected Problems (Last Reviewed 10/17/19 @ 10:31 by Morelia Coto) Acute kidney injury (Acute) Pneumonia due to COVID-19 virus (Acute) - Physical Exam Vitals/I&O's: Vital Signs Temp Pulse Resp BP Pulse Ox 97.3 F L 83 18 112/63 96 03/02/20 15:55 03/02/20 15:55 03/02/20 15:55 03/02/20 15:55 03/02/20 15:55 Oxygen Delivery Method Room Air Weight: 178 lb Body Mass Index (BMI) 34.7 Intake and Output for Last 24 Hours 02/29/20 03/01/20 03/02/20 23:59 23:59 23:59 Intake Total 500 / 500 Balance 500 / 500 General: Alert, Oriented x3, Cooperative HEENT: Atraumatic, PERRLA, EOMI, Normocephalic Oral: Dry Mucosa Neck: Supple, No JVD, Negative Carotid Bruits Lungs: Clear to auscultation, Diminished Cardiovascular: Regular rate, No murmurs Abdomen: Bowel Sounds Present, Soft, Non Tender, Non-Distended Extremities: No clubbing, No cyanosis, No edema, Capillary Refill Less than 3 Seconds Skin: No rashes, No breakdown Musculoskeletal: No Tenderness to Palpation of Joints or Extremities Neurological: Cranial nerves II-XII grossly intact, Neuro grossly intact Psych/Mental Status: Normal Affect, Appropriate Microbiology Past 72 Hours 03/02/20 16:05 Mucosa - Nose SARS-CoV-2 Antigen (Rapid) - Final Laboratory Results 03/02/20 11:55: WBC 7.2, RBC 4.95, Hgb 14.2, Hct 44.2, MCV 89.3, MCH 28.7, MCHC 32.1, RDW Std Deviation 45.4 H, RDW Coeff of Luigi 14.2, Plt Count 294, MPV 11.1, Immature Gran % (Auto) 0.700, Neut % (Auto) 75.9 H, Lymph % (Auto) 13.6 L, [place] % (Auto) 9.2, Eos % (Auto) 0.0, Baso % (Auto) 0.6, Absolute Neuts (auto) 5.5, Absolute Lymphs (auto) 0.98, Nucleated RBC % 0 03/02/20 11:55: Sodium Cancelled, Potassium Cancelled, Chloride Cancelled, Carbon Dioxide Cancelled, Anion Gap Cancelled, BUN Cancelled, Creatinine Cancelled, Estim Creat Clear Calc Cancelled, Est GFR (MDRD) Af Amer Cancelled, Est GFR (MDRD) Non-Af Cancelled, BUN/Creatinine Ratio Cancelled, Glucose Cancelled, Calcium Cancelled, Total Bilirubin Cancelled, AST Cancelled, ALT Cancelled, Alkaline Phosphatase Cancelled, Troponin I Cancelled, Total Protein Cancelled, Albumin Cancelled, Globulin Cancelled, Albumin/Globulin Ratio Cancelled 03/02/20 12:43: Sodium 136, Potassium 5.5 H, Chloride 107, Carbon Dioxide 18.0 L , Anion Gap 11, BUN 25 H, Creatinine 2.05 H, Estim Creat Clear Calc 15.20, Est GFR (MDRD) Af Amer 30 L, Est GFR (MDRD) Non-Af 25 L, BUN/Creatinine Ratio 12.2, Glucose 101, Calcium 9.0, Total Bilirubin 0.60, AST 180 H, ALT 50, Alkaline Phosphatase 143 H, Troponin I < 0.015, Total Protein 7.2, Albumin 3.3, Globulin 3.9, Albumin/Globulin Ratio 0.8 L 03/02/20 14:52: Urine Color Yellow, Urine Clarity Sl. Cloudy, Urine pH 5.0, Ur Specific [place] 1.025, Urine Protein 30 H, Urine Glucose (UA) Normal, Urine Ketones 15 H, Urine Occult Blood Negative, Urine Nitrite Negative, Urine Bilirubin 1 H, Urine Urobilinogen 1 H, Ur Leukocyte Esterase 25 H, Urine RBC 0 SEEN, Urine WBC 0 SEEN, Ur Squamous Epith Cells 0 SEEN, Amorphous Sediment 2+, Urine Bacteria 3+, Hyaline Casts 0-5 SEEN, Urine Mucus 0 SEEN Current Medications Sodium Chloride (0.9% Saline Lock 10 Ml Syringe) 10 - 40 ml IV UD PRN PRN Reason: SALINE FLUSH Assessment/Plan All Active Problems (Last Reviewed 10/17/19 @ 10:31 by Morelia Coto) Acute kidney injury (Acute) Pneumonia due to COVID-19 virus (Ruled-out) Pneumonia due to COVID-19 virus (Acute) 1. Intractable diarrhea-Covid antigen negative. Check stool for C. difficile and enteric panel. IV fluids. As needed antiemetics. If stool negative, may begin Imodium. PT/OT. 2. Acute kidney injury with hyperkalemia-IV fluids, trend BMP. 3. CAD with history of stent placement-continue aspirin, Plavix, statin, metoprolol. KACIE inhibitor on hold. 4. Hypertension-stable, continue amlodipine, metoprolol. Quinapril on hold. 5. Hyperlipidemia-continue statin. 6. History of breast cancer-continue anastrozole. 7. Abnormal chest x-ray-chest x-ray admission demonstrates bilateral pneumonic infiltrates frequently associated with COVID-19 pneumonia. Antigen test negative as noted above. Oxygen stable on room air. Patient denies cough, shortness of breath. DVT prophylaxis-heparin subcu CODE STATUS: Discussed in length with patient. Her is healthcare power of civil rights attorney and she has living will in place. She requests DNR CCA no intubation. This patient was seen by GUILLERMINA Manrique under the supervision of Dr. Burris. <Marcus Burris F - Last Filed: 03/02/20 19:43> History of Present Illness The patient is a 80 year old F [] Past Medical History Medical History: Medical History (Last Reviewed 10/17/19 @ 10:31 by Morelia Coto) Presence of stent in coronary artery (Chronic) Onset Date: ~10/15/18 Z95.5 PTCA/SHALOM to prox LAD 10/15/18 Atherosclerotic heart disease of [place] coronary artery without angina pectoris (Chronic) I25.10 Pulmonary hypertension (Chronic) I27.20 Nonrheumatic tricuspid valve regurgitation (Chronic) I36.1 Non-rheumatic mitral regurgitation (Chronic) I34.0 Premature ventricular contraction (Chronic) I49.3 Essential hypertension (Chronic) I10 Anxiety F41.9 Mass of right breast on mammogram N63.10 Breast cancer C50.919 Right HTN (hypertension) I10 Allergies No Known Allergies Allergy (Verified 03/02/20 10:41) CHARTED 09-14-17 Surgical History: Surgical History (Last Reviewed 03/02/20 @ 16:49 by Esperanza Null HOME CARE AND HOME HEALTH AIDES TEACHER, HOME CARE AND HOME HEALTH AIDES TEACHER-C) Presence of coronary angioplasty implant and graft Onset Date: ~10/15/18 Z95.5 PTCA/SHALOM to prox LAD 10/15/18 H/O bladder repair surgery Z98.890 H/O: hysterectomy Z90.710 History of cholecystectomy Z90.49 S/P coronary artery stent placement (Inactive) Onset Date: ~10/15/18 Z95.5 PTCA/SHALOM to prox LAD 10/15/18 - *Family History Maternal Family History: Family History (Last Reviewed 10/17/19 @ 10:31 by Morelia Coto) Sister Breast cancer Sister Cancer Other late entry reviwed 09-14-17 Paternal Family History: Family History (Last Reviewed 10/17/19 @ 10:31 by Morelia Coto) Sister Breast cancer Sister Cancer Other late entry reviwed 09-14-17 - Physical Exam Vitals/I&O's: Vital Signs Temp Pulse Resp BP Pulse Ox 97.3 F L 83 18 112/63 96 03/02/20 15:55 03/02/20 15:55 03/02/20 15:55 03/02/20 15:55 03/02/20 15:55 Oxygen Delivery Method Room Air Weight: 178 lb Body Mass Index (BMI) 34.7 Intake and Output for Last 24 Hours 02/29/20 03/01/20 03/02/20 23:59 23:59 23:59 Intake Total 500 / 500 Balance 500 / 500 Microbiology Past 72 Hours 03/02/20 16:05 Mucosa - Nose SARS-CoV-2 Antigen (Rapid) - Final Laboratory Results 03/02/20 11:55: WBC 7.2, RBC 4.95, Hgb 14.2, Hct 44.2, MCV 89.3, MCH 28.7, MCHC 32.1, RDW Std Deviation 45.4 H, RDW Coeff of Luigi 14.2, Plt Count 294, MPV 11.1, Immature Gran % (Auto) 0.700, Neut % (Auto) 75.9 H, Lymph % (Auto) 13.6 L, [place] % (Auto) 9.2, Eos % (Auto) 0.0, Baso % (Auto) 0.6, Absolute Neuts (auto) 5.5, Absolute Lymphs (auto) 0.98, Nucleated RBC % 0 03/02/20 11:55: Sodium Cancelled, Potassium Cancelled, Chloride Cancelled, Carbon Dioxide Cancelled, Anion Gap Cancelled, BUN Cancelled, Creatinine Cancelled, Estim Creat Clear Calc Cancelled, Est GFR (MDRD) Af Amer Cancelled, Est GFR (MDRD) Non-Af Cancelled, BUN/Creatinine Ratio Cancelled, Glucose Cancelled, Calcium Cancelled, Total Bilirubin Cancelled, AST Cancelled, ALT Cancelled, Alkaline Phosphatase Cancelled, Troponin I Cancelled, Total Protein Cancelled, Albumin Cancelled, Globulin Cancelled, Albumin/Globulin Ratio Cancelled 03/02/20 12:43: Sodium 136, Potassium 5.5 H, Chloride 107, Carbon Dioxide 18.0 L , Anion Gap 11, BUN 25 H, Creatinine 2.05 H, Estim Creat Clear Calc 15.20, Est GFR (MDRD) Af Amer 30 L, Est GFR (MDRD) Non-Af 25 L, BUN/Creatinine Ratio 12.2, Glucose 101, Calcium 9.0, Total Bilirubin 0.60, AST 180 H, ALT 50, Alkaline Phosphatase 143 H, Troponin I < 0.015, Total Protein 7.2, Albumin 3.3, Globulin 3.9, Albumin/Globulin Ratio 0.8 L 03/02/20 14:52: Urine Color Yellow, Urine Clarity Sl. Cloudy, Urine pH 5.0, Ur Specific [place] 1.025, Urine Protein 30 H, Urine Glucose (UA) Normal, Urine Ketones 15 H, Urine Occult Blood Negative, Urine Nitrite Negative, Urine Bilirubin 1 H, Urine Urobilinogen 1 H, Ur Leukocyte Esterase 25 H, Urine RBC 0 SEEN, Urine WBC 0 SEEN, Ur Squamous Epith Cells 0 SEEN, Amorphous Sediment 2+, Urine Bacteria 3+, Hyaline Casts 0-5 SEEN, Urine Mucus 0 SEEN Current Medications Sodium Chloride (0.9% Saline Lock 10 Ml Syringe) 10 - 40 ml IV UD PRN PRN Reason: SALINE FLUSH Addendum: Dr. Burris I personally examined the patient and reviewed the chart. I agree with the above. 80-year-old female has had nausea, vomiting, as well as weakness for the last 2 weeks. She denies any Covid exposure, denies any shortness of breath or cough, however her chest x-ray was read as looking similar to Covid pulmonary process therefore the Covid antigen was obtained and negative. Regardless her symptoms started 2 weeks ago therefore she would be outside of the window of needing to be isolated. Therefore we will continue with IV fluids and send for stool studies. Creatinine is 2.05 which is higher than baseline consistent with an SELENA secondary to dehydration from viral gastroenteritis. Inpatient E&M: [id number] Init Hosp L3
[2020-03-02 18:00] VITALS: BP 138/50; PULSE 89; RESP 18; TEMP 36.8; O2SAT 98
[2020-03-02] MEDS: 0.9% Normal Saline 1,000 ML 100 ML IV (18:07)
[2020-03-02] MEDS: Heparin Injection (Vial) 5,000 UNIT/ML VIAL 5000 UNIT SC (22:34)
[2020-03-03] VITALS (8 sets, daily range): BP systolic 120–150; BP diastolic 55–63; PULSE 81–98; RESP 16–20; TEMP 36.5–37.2; O2SAT 93–98
[2020-03-03] MEDS: 0.9% Normal Saline 1,000 ML 100 ML IV ×3 (03:00→21:17)
[2020-03-03] MEDS: Ondansetron 4 MG/2 ML Vial IV (04:12)
[2020-03-03] MEDS: Heparin Injection (Vial) 5,000 UNIT/ML VIAL 5000 UNIT SC ×3 (05:06→21:11)
[2020-03-03 06:34] LABS: Absolute Lymphocyte Count 0.82 X10^3/uL (0.83-4.51); Absolute Neutrophil Count 3.8 X10^3/uL (2.0-7.7); Basophil# 0.03 X10^3/uL; Basophil% 0.5 % (0-1); Eosinophil# 0.02 X10^3/uL; Eosinophils% 0.4 % (0-5); Hemoglobin 11.5 g/dL (12.0-15.0); Lymphocyte # 0.82 X10^3/ul (4.0); Lymphocyte % 14.8 % (19-41); Mean Corp Hgb Conc 31.1 g/dL (32-36); Mean Corpuscular Hgb 28.2 pg (27.0-32.0); Mean Corpuscular Volume 90.7 fL (81-99); Mean Platelet Vol. 10.9 fl (6.2-12.0); Monocyte# 0.77 X10^3/uL; Monocyte% 13.9 % (0-10); NRBC Flagged by Analyzer 0 % (0-5); Neutrophil # 3.84 X10^3/uL (2.7-7.7); Neutrophil % 69.5 % (47-70); Platelet Count 229 K/mm3 (150-450); RBC Distribution Width CV 14.2 % (11.6-14.6); RBC Distribution Width SD 47.2 fl (35.1-43.9); Red Blood Count 4.08 M/mm3 (4.2-5.4); White Blood Count 5.5 K/mm3 (4.4-11.0)
[2020-03-03 06:58] LABS: Anion Gap 10 (5-15); BUN 26 mg/dL (7-18); Calcium,Total 7.8 mg/dL (8.5-10.1); Chloride 111 mmol/L (98-107); Creatinine, Serum 1.37 mg/dL (0.55-1.02); EST Glomerular Filtration Rate 39 mL/min (>60); Est Glom Filt Rate - Afr Amer 48 mL/min (>60); Estimated Creatinine Clearance 22.74 ml/min; Glucose 87 mg/dL (74-106); Potassium 4.3 mmol/L (3.5-5.1); Sodium Level 137 mmol/L (136-145)
--- NOTE | 2020-03-03 08:59 | PCM.PN.HOSP ---
Patient Problems: Active and Suspected Problems (Last Reviewed 10/17/19 @ 10:31 by Morelia Coto) Acute kidney injury (Acute) Pneumonia due to COVID-19 virus (Acute) Reason for Visit: Follow-up on intractable diarrhea/bradycardia/SELENA Subjective: Patient was seen and examined. She feels weak. She has not had any diarrhea since she was admitted. Denied any fever or chills or abdominal pain. Objective: Physical exam: General: Alert, Oriented x3, Cooperative, appears frail HEENT: Atraumatic, PERRLA, EOMI, Normocephalic Oral: Moist Mucosa Neck: Supple, No JVD, Negative Carotid Bruits Lungs: Clear to auscultation, Diminished Cardiovascular: HS I +II, regular, No murmurs Abdomen: Bowel Sounds Present, Soft, Non Tender, Non-Distended Extremities: No edema Skin: No breakdown Musculoskeletal: No Tenderness to Palpation of Joints or Extremities Neurological: Cranial nerves II-XII grossly intact, Neuro grossly intact Psych/Mental Status: Normal Affect, Appropriate Vitals/I&O's: Vital Signs Temp Pulse Resp BP Pulse Ox 97.9 F 94 16 122/55 H 95 03/03/20 05:11 03/03/20 05:11 03/03/20 05:11 03/03/20 05:11 03/03/20 05:11 Oxygen Delivery Method Room Air Weight: 83.1 kg Body Mass Index (BMI) 35.7 Intake and Output for Last 24 Hours 03/01/20 03/02/20 03/03/20 23:59 23:59 23:59 Intake Total 500 / 750 1618.33 / 1618.33 Output Total 0 / 0 Balance 500 / 750 1618.33 / 1618.33 Microbiology Past 72 Hours 03/02/20 16:05 Mucosa - Nose SARS-CoV-2 Antigen (Rapid) - Final Laboratory Results 03/02/20 11:55: WBC 7.2, RBC 4.95, Hgb 14.2, Hct 44.2, MCV 89.3, MCH 28.7, MCHC 32.1, RDW Std Deviation 45.4 H, RDW Coeff of Luigi 14.2, Plt Count 294, MPV 11.1, Immature Gran % (Auto) 0.700, Neut % (Auto) 75.9 H, Lymph % (Auto) 13.6 L, Clinch % (Auto) 9.2, Eos % (Auto) 0.0, Baso % (Auto) 0.6, Absolute Neuts (auto) 5.5, Absolute Lymphs (auto) 0.98, Nucleated RBC % 0 03/02/20 11:55: Sodium Cancelled, Potassium Cancelled, Chloride Cancelled, Carbon Dioxide Cancelled, Anion Gap Cancelled, BUN Cancelled, Creatinine Cancelled, Estim Creat Clear Calc Cancelled, Est GFR (MDRD) Af Amer Cancelled, Est GFR (MDRD) Non-Af Cancelled, BUN/Creatinine Ratio Cancelled, Glucose Cancelled, Calcium Cancelled, Total Bilirubin Cancelled, AST Cancelled, ALT Cancelled, Alkaline Phosphatase Cancelled, Troponin I Cancelled, Total Protein Cancelled, Albumin Cancelled, Globulin Cancelled, Albumin/Globulin Ratio Cancelled 03/02/20 12:43: Sodium 136, Potassium 5.5 H, Chloride 107, Carbon Dioxide 18.0 L, Anion Gap 11, BUN 25 H, Creatinine 2.05 H, Estim Creat Clear Calc 15.20, Est GFR (MDRD) Af Amer 30 L, Est GFR (MDRD) Non-Af 25 L, BUN/Creatinine Ratio 12.2, Glucose 101, Calcium 9.0, Total Bilirubin 0.60, AST 180 H, ALT 50, Alkaline Phosphatase 143 H, Troponin I < 0.015, Total Protein 7.2, Albumin 3.3, Globulin 3.9, Albumin/Globulin Ratio 0.8 L 03/02/20 14:52: Urine Color Yellow, Urine Clarity Sl. Cloudy, Urine pH 5.0, Ur Specific [place] 1.025, Urine Protein 30 H, Urine Glucose (UA) Normal, Urine Ketones 15 H, Urine Occult Blood Negative, Urine Nitrite Negative, Urine Bilirubin 1 H, Urine Urobilinogen 1 H, Ur Leukocyte Esterase 25 H, Urine RBC 0 SEEN, Urine WBC 0 SEEN, Ur Squamous Epith Cells 0 SEEN, Amorphous Sediment 2+, Urine Bacteria 3+, Hyaline Casts 0-5 SEEN, Urine Mucus 0 SEEN 03/03/20 05:36: WBC 5.5, RBC 4.08 L, Hgb 11.5 L, Hct 37.0, MCV 90.7, MCH 28.2, MCHC 31.1 L, RDW Std Deviation 47.2 H, RDW Coeff of Luigi 14.2, Plt Count 229, MPV 10.9, Immature Gran % (Auto) 0.900, Neut % (Auto) 69.5, Lymph % (Auto) 14.8 L, Clinch % (Auto) 13.9 H, Eos % (Auto) 0.4, Baso % (Auto) 0.5, Absolute Neuts (auto) 3.8, Absolute Lymphs (auto) 0.82 L, Nucleated RBC % 0 03/03/20 05:36: Sodium 137, Potassium 4.3, Chloride 111 H, Carbon Dioxide 16.0 L, Anion Gap 10, BUN 26 H, Creatinine 1.37 H, Estim Creat Clear Calc 22.74, Est GFR (MDRD) Af Amer 48 L, Est GFR (MDRD) Non-Af 39 L, BUN/Creatinine Ratio 19.0, Glucose 87, Calcium 7.8 L Current Medications Acetaminophen (Acetaminophen 325 Mg Tablet) 650 mg PO Q6H PRN PRN PRN Reason: Pain Score 1-10/Temp > 100.7 F Amlodipine Besylate (Amlodipine 10 Mg Tablet) 10 mg PO DAILY [facility] Anastrozole (Anastrozole 1 Mg Tablet) 1 mg PO DAILY [facility] Aspirin (Aspirin E.C. 81 Mg Tablet) 81 mg PO DAILY [facility] Atorvastatin Calcium (Atorvastatin Calcium 40 Mg Tablet) 40 mg PO QHS [facility] Clopidogrel Bisulfate (Clopidogrel Bisulfate 75 Mg Tablet) 75 mg PO DAILY [facility] Heparin Sodium (Porcine) (Heparin Injection (Vial) 5,000 Unit/Ml Vial) 5,000 unit SC Q8 [facility] Last Admin: 03/03/20 05:06 Dose: 5,000 unit Documented by: Sodium Chloride () 1,000 mls @ 100 mls/hr IV .Q10H [facility] Last Admin: 03/03/20 03:00 Dose: 100 mls/hr Documented by: Melatonin (Melatonin 3 Mg Tablet) 3 mg PO QHS PRN PRN PRN Reason: INSOMNIA Metoprolol Tartrate (Metoprolol Tartrate 25 Mg Tablet) 25 mg PO BID [facility] Ondansetron HCl (Ondansetron 4 Mg/2 Ml Vial) 4 mg IV Q8H PRN PRN PRN Reason: NAUSEA/VOMITING Last Admin: 03/03/20 04:12 Dose: 4 mg Documented by: Sodium Chloride (0.9% Saline Lock 10 Ml Syringe) 10 - 40 ml IV UD PRN PRN Reason: SALINE FLUSH STROKE Vital Signs/Narrative: Vital Signs Temp Pulse Resp BP Pulse Ox 03/03/20 05:11 97.9 F 94 16 122/55 H 95 Medical Necessity - Tobacco Use Smoking Status: Never smoker Assessment/Plan All Active Problems (Last Reviewed 10/17/19 @ 10:31 by Morelia Coto) Acute kidney injury (Acute) Pneumonia due to COVID-19 virus (Ruled-out) Pneumonia due to COVID-19 virus (Acute) 1. Acute kidney injury secondary to dehydration from diarrhea Patient's admitting creatinine was 2.05, creatinine is 1.37 Baseline creatinine 0.8 Continue on IV fluids, repeat blood work in a.m. 2. Debility secondary to #1 Patient appears very weak. She lives with her We will get PT and OT to evaluate and treat 3. Acute intractable diarrhea, patient has had no diarrhea since being admitted Continue to monitor 4. Hyperkalemia, resolved, K now is 4.3 5. Hypertension, slightly uncontrolled, continue on amlodipine, metoprolol, continue to hold quinapril 6. DVT PPx- Heparin SC Inpatient E&M: 42415 Subs Hosp L2
--- NOTE | 2020-03-03 09:35 | CASEMGMT ---
RN CM Face to Face with patient for initial transition planning/care coordination assessment. RN CM introduced self and role at [facility]. Patient sitting in chair, alert and oriented. Patient willing to participate in assessment and is able to answer all questions appropriately. Care providers, pharmacy, and demographics verified. Patient wishes to discharge home, denies need for home health at this time. Patient states she has no further needs or concerns at this time. CM to follow for discharge planning needs that may arise. PCP: Robin LOWRY Specialists: Jose Francisco loin trimmer Preferred Pharmacy: [facility] Insurance: [employer] Prescription Benefit: yes Living Will/HPOA: yes, Willie Streeter LNOK: Living Arrangements: Patient lives with in a single story home with no steps to enter the home. Patient states she is independent at home. Transportation: self/ DME/HHC: Patient states she has cane, walker, wheelchair, and grab bars at home. Disposition Plan: Patient to discharge home with family support and follow-up plans in place. Devorah VUONG, RN, CM
[2020-03-03] MEDS: amLODIPine 10 MG Tablet PO (10:50)
[2020-03-03] MEDS: Metoprolol Tartrate 25 MG Tablet PO ×2 (10:50→21:11)
[2020-03-03] MEDS: Clopidogrel Bisulfate 75 MG Tablet PO (10:51)
[2020-03-03] MEDS: Aspirin E.C. 81 MG Tablet PO (10:51)
[2020-03-03] MEDS: Anastrozole 1 MG Tablet PO (10:51)
--- NOTE | 2020-03-03 12:38 | NURSING ---
pt son Antione requests that staff calls him in the morning after the doctor rounds in order to provide pt update and make plans regarding discharge home. per Antione, pt Vikas can be forgetful at times.
--- NOTE | 2020-03-03 14:02 | CHAPLAIN ---
Type of Pastoral Visit _x__ Initial Visit ___ Follow-up Visit ___ On-call Visit ___ General Patient Visit ___ Spiritual Assessment ___ Family Conference ___ Bereavement ___ Rapid Response ___ Code Blue ___ Other (describe below) Pastoral Care Referral From _x__ Patient ___ Family ___ Nurse ___ Physician ___ Department Specialist ___ Shirt Turner ___ Other (describe below) Sacrament/Intervention _x__ Active listening ___ Anointing ___ Yazidism ___ Bereavement ___ Communion ___ Kiley exploration ___ _x__ Life review _x__ Prayer ___ Reconciliation ___ Sacrament of Sick _x__ Supportive presence ___ Wedding ___ Other (describe below) Pastoral Comments
[2020-03-03] MEDS: Atorvastatin Calcium 40 MG Tablet PO (21:11)
[2020-03-04] VITALS (9 sets, daily range): BP systolic 117–145; BP diastolic 70–78; PULSE 65–86; RESP 18–20; TEMP 36.6–37; O2SAT 77–98
--- NOTE | 2020-03-04 01:33 | PCM.PN.BLA ---
Progress Note Nurse report that patient is short of breath when up to the bathroom and has expiratory wheezes. Fluids running at 100 MLS per hour. Nurse asking whether IV fluids can be decreased or stopped and breathing treatments ordered. Will stop IV fluids. Of note patient was admitted for gastroenteritis, SELENA and dehydration. CMP already ordered in a.m.. Proair inhalation as needed for shortness of breath or wheezes ordered.
[2020-03-04] MEDS: INHALER, ASSIST DEVICES 1 EACH SPACER INHALATION (02:00)
[2020-03-04] MEDS: Heparin Injection (Vial) 5,000 UNIT/ML VIAL 5000 UNIT SC (05:39)
[2020-03-04 06:27] LABS: Absolute Lymphocyte Count 1.03 X10^3/uL (0.83-4.51); Absolute Neutrophil Count 3.5 X10^3/uL (2.0-7.7); Basophil# 0.05 X10^3/uL; Basophil% 0.9 % (0-1); Eosinophil# 0.06 X10^3/uL; Eosinophils% 1.1 % (0-5); Hematocrit 36.5 % (37-47); Hemoglobin 11.4 g/dL (12.0-15.0); Lymphocyte # 1.03 X10^3/ul (4.0); Lymphocyte % 18.9 % (19-41); Mean Corp Hgb Conc 31.2 g/dL (32-36); Mean Corpuscular Hgb 28.4 pg (27.0-32.0); Mean Corpuscular Volume 90.8 fL (81-99); Monocyte# 0.76 X10^3/uL; Monocyte% 13.9 % (0-10); NRBC Flagged by Analyzer 0 % (0-5); Neutrophil # 3.51 X10^3/uL (2.7-7.7); Neutrophil % 64.5 % (47-70); Platelet Count 228 K/mm3 (150-450); RBC Distribution Width CV 14.3 % (11.6-14.6); RBC Distribution Width SD 47.8 fl (35.1-43.9); Red Blood Count 4.02 M/mm3 (4.2-5.4); White Blood Count 5.5 K/mm3 (4.4-11.0)
[2020-03-04 06:56] LABS: ALB/GLOB Ratio 0.9 RATIO (0.9-2.4); AST(SGOT) 146 U/L (15-37); Alanine Aminotransfer ALT/SGPT 44 U/L (13-56); Albumin, Serum 2.7 g/dL (3.2-5.0); Alkaline Phosphatase 131 U/L (45-117); Anion Gap 8 (5-15); BUN 19 mg/dL (7-18); BUN/Creat Ratio 19.1 RATIO (10-20); Calcium,Total 8.3 mg/dL (8.5-10.1); Chloride 113 mmol/L (98-107); Creatinine, Serum 0.99 mg/dL (0.55-1.02); EST Glomerular Filtration Rate 57 mL/min (>60); Est Glom Filt Rate - Afr Amer 69 mL/min (>60); Estimated Creatinine Clearance 31.47 ml/min; Globulin 3.1 g/dL (2.2-4.2); Glucose 103 mg/dL (74-106); Potassium 4.2 mmol/L (3.5-5.1); Protein, Total 5.8 g/dL (6.4-8.2); Sodium Level 138 mmol/L (136-145)
[2020-03-04] MEDS: Aspirin E.C. 81 MG Tablet PO (08:07)
--- NOTE | 2020-03-04 08:35 | DCINST_ITS ---
- Discharge Diagnoses Current Active Problems: Current Active and Chronic Problems (Last Reviewed 10/17/19 @ 10:31 by Morelia Coto) Acute kidney injury (Acute) Pneumonia due to COVID-19 virus (Acute) Presence of stent in coronary artery (Chronic ~10/15/18) PTCA/SHALOM to prox LAD 10/15/18 Atherosclerotic heart disease of [place] coronary artery without angina pectoris (Chronic) Abnormal stress test (Chronic) Pulmonary hypertension (Chronic) Nonrheumatic tricuspid valve regurgitation (Chronic) Non-rheumatic mitral regurgitation (Chronic) Premature ventricular contraction (Chronic) Essential hypertension (Chronic) Cancer of right female breast (Chronic) You will use the following diet at home:: Cardiac Your food should be the consistency of: Regular Your liquids should be the consistency of: Regular/Thin Discharge Activity: Return to Normal Activity Additional Instructions: You will need a BMP (lab) at follow up, ask your PCP to arrange this. Allergies/Adverse Reactions: Allergies No Known Allergies Allergy (Verified 03/02/20 10:41) CHARTED 09-14-17 Medications to take at Discharge Aspirin [Low Dose Aspirin EC] 81 mg PO DAILY 09/17/17 anastrozole 1 mg tablet 1 mg PO DAILY 09/16/18 quinapril 40 mg tablet 40 mg PO DAILY 09/16/18 Amlodipine Besylate [Norvasc] 10 mg PO DAILY 03/02/20 Atorvastatin Calcium 40 mg PO QHS 03/02/20 Clopidogrel Bisulfate [Clopidogrel] 75 mg PO DAILY 03/02/20 Metoprolol Tartrate 25 mg PO BID 03/02/20 Acetaminophen [Tylenol Tablet] 650 mg PO Q6H PRN PRN tablet 03/04/20 Primary Care Physician: Marta Kelly TRENCHER DRIVER, TRENCHER DRIVER-C [Primary Care Provider] - Please follow up with your Primary Care Physician in: 1-2 weeks Test Results: Test results from this visit will be discussed in further detail at your follow- up appointment, if applicable. Proposed Discharge Date: 03/04/20
[2020-03-04] MEDS: Metoprolol Tartrate 25 MG Tablet PO (10:27)
[2020-03-04] MEDS: Furosemide 40 MG/4 ML Vial IV (10:27)
[2020-03-04] MEDS: Anastrozole 1 MG Tablet PO (10:27)
[2020-03-04] MEDS: amLODIPine 10 MG Tablet PO (10:27)
[2020-03-04] MEDS: Clopidogrel Bisulfate 75 MG Tablet PO (10:28)
--- NOTE | 2020-03-04 10:46 | DS.PCM_ITS ---
<Popeye Sargent - Last Filed: 03/04/20 10:46> Discharge Date and Diagnosis - Problem List Patient Problems: Active and Suspected Problems (Last Reviewed 10/17/19 @ 10:31 by Morelia Coto) Acute kidney injury (Acute) Pneumonia due to COVID-19 virus (Acute) Date of Admission: 03/02/20 Date of Discharge: 03/04/20 - Primary Discharge Diagnosis Acute Problems: Active Problems (Last Reviewed 10/17/19 @ 10:31 by Morelia Coto) Acute kidney injury (Acute) 2/2 diarrhea, dehydration Debility 2/2 above Hyperkalemia - resolved HTN - Secondary Discharge Diagnosis Chronic Problems: Chronic Problems (Last Reviewed 10/17/19 @ 10:31 by Morelia Coto) Presence of stent in coronary artery (Chronic ~10/15/18) PTCA/SHALOM to prox LAD 10/15/18 Atherosclerotic heart disease of [place] coronary artery without angina pectoris (Chronic) Abnormal stress test (Chronic) Pulmonary hypertension (Chronic) Nonrheumatic tricuspid valve regurgitation (Chronic) Non-rheumatic mitral regurgitation (Chronic) Premature ventricular contraction (Chronic) Essential hypertension (Chronic) Cancer of right female breast (Chronic) Hospital Course and Treatment Imaging Results: CT/Brain/Head without Contrast IMPRESSION: Normal CT scan of the head. RAD/Chest 1 View (Portable) IMPRESSION: Bilateral pneumonic infiltrates are identified frequently associated with COVID-19 pneumonia. Operations: None Procedures: None Summary of Care Provided: Hospital course: The patient is a 80 year old F past medical history as above who presented to the emergency room with nausea, vomiting, diarrhea, weakness. This is been going on for approximately 2 weeks. She had recently been taking Bactrim but she was not sure why. She was found to have acute kidney injury and hyperkalemia. She was admitted to the medical surgical floor. She was taken off of her KACIE inhibitor. She was started on IV fluids and supportive care. CT of the brain was negative chest x-ray was consistent with prior Covid infection however her Covid test was negative. Potassium normalized. Diarrhea resolved. Nausea resolved. Acute kidney injury resolved. She was discharged home in stable condition. She will stay off of quinapril given her hyperkalemia at least until follow-up. She should have a BMP in 1 week. She will need to follow-up with her PCP in 1 to 2 weeks. This patient was seen by Popeye Sargent PA-C under the supervision of Doctor Rose. [] Patient Problems: Active and Suspected Problems (Last Reviewed 10/17/19 @ 10:31 by Morelia Coto) Acute kidney injury (Acute) Pneumonia due to COVID-19 virus (Acute) - Physical Exam Vitals/I&O's: Vital Signs Temp Pulse Resp BP Pulse Ox 98.6 F 86 18 120/70 91 03/04/20 07:55 03/04/20 10:27 03/04/20 07:55 03/04/20 07:55 03/04/20 10:13 Oxygen Flow Rate (L/min) [ 2 AMBULATION with Oxygen] Oxygen Delivery Method Room Air Weight: 183 lb 3.266 oz Body Mass Index (BMI) 35.7 Intake and Output for Last 24 Hours 03/02/20 03/03/20 03/04/20 23:59 23:59 23:59 Intake Total 500 / 750 3846.67 / 4046.67 450 / 450 Output Total 400 / 700 400 / 400 Balance 500 / 750 3446.67 / 3346.67 50 / 50 General: Alert, Oriented x3, Cooperative HEENT: Atraumatic, PERRLA, EOMI, Normocephalic Neck: Supple, No JVD, Negative Carotid Bruits Lungs: Clear to auscultation, Normal air movement Cardiovascular: Regular rate, No murmurs Abdomen: Bowel Sounds Present, Soft, Non Tender Extremities: No edema, Capillary Refill Less than 3 Seconds Skin: No rashes, No breakdown Musculoskeletal: No Tenderness to Palpation of Joints or Extremities Neurological: Cranial nerves II-XII grossly intact Psych/Mental Status: Normal Affect, Appropriate, Alert and oriented to time, place, person, mood and affect Microbiology Past 72 Hours 03/02/20 16:05 Mucosa - Nose SARS-CoV-2 Antigen (Rapid) - Final Laboratory Results 03/04/20 05:25: WBC 5.5, RBC 4.02 L, Hgb 11.4 L, Hct 36.5 L, MCV 90.8, MCH 28.4, MCHC 31.2 L, RDW Std Deviation 47.8 H, RDW Coeff of Luigi 14.3, Plt Count 228, MPV 11.0, Immature Gran % (Auto) 0.700, Neut % (Auto) 64.5, Lymph % (Auto) 18.9 L, [place] % (Auto) 13.9 H, Eos % (Auto) 1.1, Baso % (Auto) 0.9, Absolute Neuts (auto) 3.5, Absolute Lymphs (auto) 1.03, Nucleated RBC % 0 03/04/20 05:25: Sodium 138, Potassium 4.2, Chloride 113 H, Carbon Dioxide 17.0 L , Anion Gap 8, BUN 19 H, Creatinine 0.99, Estim Creat Clear Calc 31.47, Est GFR (MDRD) Af Amer 69, Est GFR (MDRD) Non-Af 57 L, BUN/Creatinine Ratio 19.1, Glucose 103, Calcium 8.3 L, Total Bilirubin 0.50, AST 146 H, ALT 44, Alkaline Phosphatase 131 H, Total Protein 5.8 L, Albumin 2.7 L, Globulin 3.1, Albumin/Globulin Ratio 0.9 Current Medications Acetaminophen (Acetaminophen 325 Mg Tablet) 650 mg PO Q6H PRN PRN PRN Reason: Pain Score 1-10/Temp > 100.7 F Albuterol Sulfate (Albuterol Sulfate 18 Gm Inhaler (200 Puffs)) 2 puff IH Q4H PRN PRN PRN Reason: SOB/WHEEZING Last Admin: 03/04/20 02:00 Dose: 2 puff Documented by: Amlodipine Besylate (Amlodipine 10 Mg Tablet) 10 mg PO DAILY [facility] Last Admin: 03/04/20 10:27 Dose: 10 mg Documented by: Anastrozole (Anastrozole 1 Mg Tablet) 1 mg PO DAILY [facility] Last Admin: 03/04/20 10:27 Dose: 1 mg Documented by: Aspirin ([facility]in E.C. 81 Mg Tablet) [facility] Last Admin: 03/04/20 08:07 Dose: 81 mg Documented by: Atorvastatin Calcium (Atorvastatin Calcium 40 Mg Tablet) 40 mg PO QHS [facility] Last Admin: 03/03/20 21:11 Dose: 40 mg Documented by: Clopidogrel Bisulfate (Clopidogrel Bisulfate 75 Mg Tablet) 75 mg PO DAILY [facility] Last Admin: 03/04/20 10:28 Dose: 75 mg Documented by: Heparin Sodium (Porcine) (Heparin Injection (Vial) 5,000 Unit/Ml Vial) 5,000 unit SC Q8 [facility] Last Admin: 03/04/20 05:39 Dose: 5,000 unit Documented by: Melatonin (Melatonin 3 Mg Tablet) 3 mg PO QHS PRN PRN PRN Reason: INSOMNIA Metoprolol Tartrate (Metoprolol Tartrate 25 Mg Tablet) 25 mg PO BID [facility] Last Admin: 03/04/20 10:27 Dose: 25 mg Documented by: Miscellaneous Information (Inhaler, Assist Devices 1 Each Spacer) 1 each INHALATION PRN PRN PRN Reason: WITH ALBUTEROL INHALER Last Admin: 03/04/20 02:00 Dose: 1 each Documented by: Ondansetron HCl (Ondansetron 4 Mg/2 Ml Vial) 4 mg IV Q8H PRN PRN PRN Reason: NAUSEA/VOMITING Last Admin: 03/03/20 04:12 Dose: 4 mg Documented by: Sodium Chloride (0.9% Saline Lock 10 Ml Syringe) 10 - 40 ml IV UD PRN PRN Reason: SALINE FLUSH Discharge Diet: Low fat/ Low Cholesterol, 2000 mg Sodium Diet Discharge Activity: Return to Normal Activity Home Medications: Medications to take at Discharge Aspirin [Low Dose Aspirin EC] 81 mg PO DAILY 09/17/17 anastrozole 1 mg tablet 1 mg PO DAILY 09/16/18 quinapril 40 mg tablet 40 mg PO DAILY 09/16/18 Amlodipine Besylate [Norvasc] 10 mg PO DAILY 03/02/20 Atorvastatin Calcium 40 mg PO QHS 03/02/20 Clopidogrel Bisulfate [Clopidogrel] 75 mg PO DAILY 03/02/20 Metoprolol Tartrate 25 mg PO BID 03/02/20 Acetaminophen [Tylenol Tablet] 650 mg PO Q6H PRN PRN tab 03/04/20 Primary Care Physician: Marta Kelly FLEET MECHANIC, FLEET MECHANIC-C [Primary Care Provider] - Please follow up with your Primary Care Physician in: 1-2 weeks Disposition: Home Minutes spent on discharge:: 35 Patient Condition:: Stable Medical Necessity - Tobacco Use Smoking Status: Never smoker Meaningful Use Info Meaningful Use Diagnoses (Choose all that apply): None applicable <[place] - Last Filed: 03/04/20 12:55> Discharge Date and Diagnosis - Primary Discharge Diagnosis Acute Problems: Active Problems (Last Reviewed 10/17/19 @ 10:31 by Morelia Coto) Acute kidney injury (Acute) Pneumonia due to COVID-19 virus (Acute) - Secondary Discharge Diagnosis Chronic Problems: Chronic Problems (Last Reviewed 10/17/19 @ 10:31 by Morelia Coto) Presence of stent in coronary artery (Chronic ~10/15/18) PTCA/SHALOM to prox LAD 10/15/18 Atherosclerotic heart disease of [place] coronary artery without angina pectoris (Chronic) Abnormal stress test (Chronic) Pulmonary hypertension (Chronic) Nonrheumatic tricuspid valve regurgitation (Chronic) Non-rheumatic mitral regurgitation (Chronic) Premature ventricular contraction (Chronic) Essential hypertension (Chronic) Cancer of right female breast (Chronic) Hospital Course and Treatment Summary of Care Provided: This patient was seen in conjunction with NAKITA Gao. I have independently interviewed and examined the patient and reviewed pertinent historical, laboratory, and other data. Please refer to NAKITA Gao note for his patient's presentation, findings, and recommendations. I have reviewed and his note and concur with his documentation 80-year-old female with multiple comorbidities who comes in with nausea vomiting diarrhea and generalized weakness ongoing for about 2 weeks. Patient was found to have an acute kidney injury with hyperkalemia. She was managed on IV fluids with improvement and resolution of acute kidney injury. Her hospital stay was uneventful except for shortness of breath that was experienced the night before discharge. Patient's IV fluids were stopped. She received IV Lasix. She was off oxygen at time of discharge. She was admitted for home oxygen and did not qualify. She was asked to follow-up with her primary care doctor within a week for repeat blood work to check on the kidney function. On the day of discharge, patient was seen and examined. She denied any new complaints. Physical Exam: Gen: Frail, not on oxygen, not pale, not jaundiced CVS:HS I +II, regular, no murmurs RESP: Diminished at lung bases GI: BS present and normal, soft, nontender, no palpable organs EXT:No edema - Physical Exam Vitals/I&O's: Vital Signs Temp Pulse Resp BP Pulse Ox 98.6 F 86 18 120/70 91 03/04/20 07:55 03/04/20 10:27 03/04/20 07:55 03/04/20 07:55 03/04/20 10:13 Oxygen Flow Rate (L/min) [ 2 AMBULATION with Oxygen] Oxygen Delivery Method Room Air Weight: 83.1 kg Body Mass Index (BMI) 35.7 Intake and Output for Last 24 Hours 03/02/20 03/03/20 03/04/20 23:59 23:59 23:59 Intake Total 500 / 750 3846.67 / 4046.67 450 / 450 Output Total 400 / 700 400 / 400 Balance 500 / 750 3446.67 / 3346.67 50 / 50 Microbiology Past 72 Hours 03/02/20 16:05 Mucosa - Nose SARS-CoV-2 Antigen (Rapid) - Final Laboratory Results 03/04/20 05:25: WBC 5.5, RBC 4.02 L, Hgb 11.4 L, Hct 36.5 L, MCV 90.8, MCH 28.4, MCHC 31.2 L, RDW Std Deviation 47.8 H, RDW Coeff of Luigi 14.3, Plt Count 228, MPV 11.0, Immature Gran % (Auto) 0.700, Neut % (Auto) 64.5, Lymph % (Auto) 18.9 L, [place] % (Auto) 13.9 H, Eos % (Auto) 1.1, Baso % (Auto) 0.9, Absolute Neuts (auto) 3.5, Absolute Lymphs (auto) 1.03, Nucleated RBC % 0 03/04/20 05:25: Sodium 138, Potassium 4.2, Chloride 113 H, Carbon Dioxide 17.0 L , Anion Gap 8, BUN 19 H, Creatinine 0.99, Estim Creat Clear Calc 31.47, Est GFR (MDRD) Af Amer 69, Est GFR (MDRD) Non-Af 57 L, BUN/Creatinine Ratio 19.1, Glucose 103, Calcium 8.3 L, Total Bilirubin 0.50, AST 146 H, ALT 44, Alkaline Phosphatase 131 H, Total Protein 5.8 L, Albumin 2.7 L, Globulin 3.1, Albumin/Globulin Ratio 0.9 Current Medications Acetaminophen (Acetaminophen 325 Mg Tablet) 650 mg PO Q6H PRN PRN PRN Reason: Pain Score 1-10/Temp > 100.7 F Albuterol Sulfate (Albuterol Sulfate 18 Gm Inhaler (200 Puffs)) 2 puff IH Q4H PRN PRN PRN Reason: SOB/WHEEZING Last Admin: 03/04/20 02:00 Dose: 2 puff Documented by: Amlodipine Besylate (Amlodipine 10 Mg Tablet) 10 mg PO DAILY [facility] Last Admin: 03/04/20 10:27 Dose: 10 mg Documented by: Anastrozole (Anastrozole 1 Mg Tablet) 1 mg PO DAILY [facility] Last Admin: 03/04/20 10:27 Dose: 1 mg Documented by: Aspirin (Aspirin E.C. 81 Mg Tablet) [facility] Last Admin: 03/04/20 08:07 Dose: 81 mg Documented by: Atorvastatin Calcium (Atorvastatin Calcium 40 Mg Tablet) 40 mg PO QHS [facility] Last Admin: 03/03/20 21:11 Dose: 40 mg Documented by: Clopidogrel Bisulfate (Clopidogrel Bisulfate 75 Mg Tablet) 75 mg PO DAILY [facility] Last Admin: 03/04/20 10:28 Dose: 75 mg Documented by: Heparin Sodium (Porcine) (Heparin Injection (Vial) 5,000 Unit/Ml Vial) 5,000 unit SC Q8 [facility] Last Admin: 03/04/20 05:39 Dose: 5,000 unit Documented by: Melatonin (Melatonin 3 Mg Tablet) 3 mg PO QHS PRN PRN PRN Reason: INSOMNIA Metoprolol Tartrate (Metoprolol Tartrate 25 Mg Tablet) 25 mg PO BID [facility] Last Admin: 03/04/20 10:27 Dose: 25 mg Documented by: Miscellaneous Information (Inhaler, Assist Devices 1 Each Spacer) 1 each INHALATION PRN PRN PRN Reason: WITH ALBUTEROL INHALER Last Admin: 03/04/20 02:00 Dose: 1 each Documented by: Ondansetron HCl (Ondansetron 4 Mg/2 Ml Vial) 4 mg IV Q8H PRN PRN PRN Reason: NAUSEA/VOMITING Last Admin: 03/03/20 04:12 Dose: 4 mg Documented by: Sodium Chloride (0.9% Saline Lock 10 Ml Syringe) 10 - 40 ml IV UD PRN PRN Reason: SALINE FLUSH Inpatient E&M: [id number] [facility]
--- NOTE | 2020-03-04 13:55 | NURSING ---
hands warmed and pulse wnl for home going son called that pt will be dc'd without o2
--- NOTE | 2020-03-05 16:39 | CASEMGMT ---
MEENAKSHI ARANGO Discharge Follow-up Phone Call: ELIZABET: Odalys Strata: 3 Call Date: 03/05/20 Discharge Date: 03/04/20 Time of Call: [id number] Duration: 3 min Admitting Diagnosis: Viral Gastroenteritis MEENAKSHI ARANGO completed follow-up phone call after recent hospitalization. Patient states she is doing ok. Had no questions or concerns regarding discharge instructions. Patient states she will call Sunday to schedule follow-up appts. Patient had no further questions or concerns at this time.
== END 2020-03-04 14:52 | disposition home or self-care (01) | DRG 641 ==
LOC: ED 15:47 → MS3 18:15
PROVIDERS: Admitting Provider Family Medicine; Emergency Provider Emergency Medicine; PCP Nurse Practitioner Family; Visit Provider Internal Medicine
DX: E86.0 Dehydration (principal); N17.9 Acute kidney failure, unspecified; A08.4 Viral intestinal infection, unspecified; E87.5 Hyperkalemia; I25.10 Atherosclerotic heart disease of native coronary artery without angina pectoris; I10 Essential (primary) hypertension; I27.20 Pulmonary hypertension, unspecified; I36.1 Nonrheumatic tricuspid (valve) insufficiency; I34.0 Nonrheumatic mitral (valve) insufficiency; I49.3 Ventricular premature depolarization; E78.5 Hyperlipidemia, unspecified; Z79.82 Long term (current) use of aspirin; Z79.02 Long term (current) use of antithrombotics/antiplatelets; Z79.811 Long term (current) use of aromatase inhibitors; Z79.899 Other long term (current) drug therapy; Z85.3 Personal history of malignant neoplasm of breast; Z95.5 Presence of coronary angioplasty implant and graft
CPT/HCPCS: 70450; 71045; 80048; 80053; 81001; 84484; 85025; 87426; 93005; 96361; 96372; 96374; 97162; 97166; 99218; 99285; J7030; A4216; G0378; J1940; J2405